=== PATIENT | male | born 1950 | race Caucasian/White ===

== ENCOUNTER 2017-09-22 12:18 | Inpatient (IN) | payer OTHER ==
[~2017-09-22] VITALS: Ht 188 cm; Wt 62.0 kg
[2017-09-22] VITALS (11 sets, daily range): BP systolic 86–103; BP diastolic 56–70
[2017-09-22 13:40] LABS: ALBUMIN 1.9 g/dL (3.2-4.8); CHLORIDE 107 mEq/L (99-109); SODIUM 136 mEq/L (136-147)
[2017-09-22 13:42] LABS: GLUCOSE 113 mg/dL (70-99); TOTAL PROTEIN 6.2 g/dL (6.4-8.3)
[2017-09-22 13:44] LABS: BASOPHIL (%) 0.2 % (0-1); EOSINOPHIL (%) 0.8 % (0-5); EOSINOPHIL COUNT 0.1 K/uL (0-0.3); HEMATOCRIT 15.2 % (38.0-50.0); HEMOGLOBIN 3.6 G/DL (12.5-16.6); IMMATURE GRANULOCYTE (%) 0.5 % (0.0-0.7); LYMPHOCYTE (%) 12.5 % (15-42); LYMPHOCYTE COUNT 0.8 K/uL (1.0-2.8); MCH 12.7 PG (29.0-34.0); MCHC 23.7 G/DL (30.0-36.0); MCV 53.5 FL (86-99); MONOCYTE (%) 7.7 % (3-12); MONOCYTE COUNT 0.5 K/uL (0-0.8); NEUTROPHIL (%) 78.3 % (45-76); NEUTROPHIL COUNT 4.8 K/uL (1.8-6.4); PLATELET COUNT 632 K/uL (156-360); RBC DIS.WIDTH-CV 19.8 % (11.8-14.6); RBC DIS.WIDTH-SD 36.9 % (39-53); RED BLOOD COUNT 2.84 M/uL (4.00-5.50); TOTAL BILIRUBIN 0.2 mg/dL (0.0-1.0); WHITE BLOOD COUNT 6.1 K/uL (4.1-10.2)
[2017-09-22 13:46] LABS: ALKALINE PHOSPHATASE 52 IU/L (3-129); CREATININE 0.5 mg/dL (0.6-1.3); GFR ESTIMATE (CALCULATED) > 59 mL/min/ (58.99-99999)
[2017-09-22 13:47] LABS: UREA NITROGEN (BUN) 13 mg/dL (9-23)
[2017-09-22 13:48] LABS: AST (GOT) 9 IU/L (2-34)
[2017-09-22 13:49] LABS: ALT (GPT) 6 IU/L (3-49); LIPASE 46 U/L (1.0-51.0)
[2017-09-22 16:17] LABS: INTER. NORMALIZED RATIO 1.3
[2017-09-22 16:20] LABS: PTT 28.6 SEC (25-37)
[2017-09-22 23:31] LABS: INTER. NORMALIZED RATIO 1.3
[2017-09-22 23:34] LABS: PTT 36.6 SEC (25-37)
[2017-09-23] VITALS (10 sets, daily range): BP systolic 83–104; BP diastolic 50–70
[2017-09-23 03:48] LABS: HEMATOCRIT 27.2 % (38.0-50.0); HEMOGLOBIN 8.1 G/DL (12.5-16.6)
[2017-09-23 03:49] LABS: MCV 66.2 FL (86-99)
[2017-09-23 04:05] LABS: CHLORIDE 113 mEq/L (99-109); SODIUM 138 mEq/L (136-147)
[2017-09-23 04:10] LABS: CREATININE 0.5 mg/dL (0.6-1.3); GFR ESTIMATE (CALCULATED) > 59 mL/min/ (58.99-99999)
[2017-09-23 04:11] LABS: UREA NITROGEN (BUN) 13 mg/dL (9-23)
[2017-09-23 04:22] LABS: GLUCOSE 47 mg/dL (70-99)
[2017-09-23 06:15] LABS: HEMATOCRIT 29.1 % (38.0-50.0); HEMOGLOBIN 8.8 G/DL (12.5-16.6); MCV 65.1 FL (86-99); WHITE BLOOD COUNT 6.1 K/uL (4.1-10.2)
[2017-09-23 06:16] LABS: MCH 19.7 PG (29.0-34.0); MCHC 30.2 G/DL (30.0-36.0); RED BLOOD COUNT 4.47 M/uL (4.00-5.50)
[2017-09-23 06:17] LABS: PLATELET COUNT 390 K/uL (156-360)
[2017-09-23 06:23] LABS: ALBUMIN 1.8 g/dL (3.2-4.8); CHLORIDE 113 mEq/L (99-109); SODIUM 137 mEq/L (136-147)
[2017-09-23 06:26] LABS: TOTAL PROTEIN 5.9 g/dL (6.4-8.3)
[2017-09-23 06:29] LABS: ALKALINE PHOSPHATASE 51 IU/L (3-129); CREATININE 0.5 mg/dL (0.6-1.3); GFR ESTIMATE (CALCULATED) > 59 mL/min/ (58.99-99999)
[2017-09-23 06:30] LABS: UREA NITROGEN (BUN) 13 mg/dL (9-23)
[2017-09-23 06:31] LABS: AST (GOT) 13 IU/L (2-34)
[2017-09-23 06:32] LABS: ALT (GPT) 8 IU/L (3-49)
[2017-09-23 06:37] LABS: GLUCOSE 77 mg/dL (70-99); TOTAL BILIRUBIN 0.6 mg/dL (0.0-1.0)
[2017-09-23 12:10] LABS: IMM.RETIC FRACTION 8.3 % (3-19); RETICULOCYTE COUNT 1.6 % (0.5-1.8)
[2017-09-23 13:47] LABS: FOLIC ACID (FOLATE) 8.7 NG/ML (5.0-22.0)
[2017-09-23 15:24] LABS: MAGNESIUM 1.6 mg/dl (1.3-2.7)
[2017-09-23 15:30] LABS: PHOSPHORUS 2.5 mg/dL (2.5-4.9)
[2017-09-23 20:24] LABS: APPEARANCE CLOUDY ((CLEAR)); BILIRUBIN NEGATIVE; BLOOD MODERATE; COLOR YELLOW ((YELLOW)); GLUCOSE (STRIP) NEGATIVE; KETONES NEGATIVE; LEUKOCYTES LARGE; NITRITE NEGATIVE; PROTEIN (STRIP) NEGATIVE; SPECIFIC GRAVITY 1.019 (1.000-1.030); UROBILINOGEN 0.2 MG/DL (0.2-1.0)
[2017-09-23 20:50] LABS: BACTERIA 4+ /HPF; EPITHELIAL CELLS NONE SEEN /HPF; MUCUS NONE SEEN /LPF; RED BLOOD CELLS 0-5 /HPF (0-5); WHITE BLOOD CELLS 30-40 /HPF (0-5)
[2017-09-24 05:45] VITALS: BP 92/56
[2017-09-24 06:32] LABS: CHLORIDE 114 MEQ/L (99-109); CREATININE 0.6 MG/DL (0.6-1.3); GFR ESTIMATE (CALCULATED) > 59 mL/min/ (58.99-99999); GLUCOSE 76 mg/dL (70-99); POTASSIUM 4.4 MEQ/L (3.7-5.4); SODIUM 137 MEQ/L (136-147); UREA NITROGEN (BUN) 16 mg/dL (9-23)
[2017-09-24 07:43] LABS: ANISOCYTOSIS 2+; BASOPHIL (%) 0.5 % (0-1); BURR CELLS 1+; EOSINOPHIL (%) 2.1 % (0-5); EOSINOPHIL COUNT 0.2 K/uL (0-0.3); HEMATOCRIT 36.4 % (38.0-50.0); HEMOGLOBIN 10.4 G/DL (12.5-16.6); HYPOCHROMASIA 2+; IMMATURE GRANULOCYTE (%) 0.3 % (0.0-0.7); LYMPHOCYTE (%) 15.6 % (15-42); LYMPHOCYTE COUNT 1.2 K/uL (1.0-2.8); MACROCYTES 1+; MCH 19.7 PG (29.0-34.0); MCHC 28.6 G/DL (30.0-36.0); MICROCYTOSIS 2+; MONOCYTE (%) 9.4 % (3-12); MONOCYTE COUNT 0.7 K/uL (0-0.8); NEUTROPHIL (%) 72.1 % (45-76); NEUTROPHIL COUNT 5.4 K/uL (1.8-6.4); PLAT.SUFFICIENCY INCREASED; PLATELET CLUMPS PRESENT - PLATELET COUNT APPEARS INCREASED; PLATELET COUNT UNABLE TO REPORT K/uL (156-360); POIKILOCYTOSIS 3+; RED BLOOD COUNT 5.27 M/uL (4.00-5.50); WHITE BLOOD COUNT 7.5 K/uL (4.1-10.2)
[2017-09-24 07:44] LABS: MCV 69.1 FL (86-99)
[2017-09-24 07:47] VITALS: BP 101/58
[2017-09-24 11:05] VITALS: BP 103/63
[2017-09-24 12:57] LABS: TYPE OF FLUID PLEURAL
[2017-09-24 13:32] LABS: BODY FLUID GLUCOSE 96 MG/DL; BODY FLUID LDH 102 IU/L
[2017-09-24 13:42] LABS: APPEARANCE SL. HAZY-COLORLESS; BODY FLUID EOSINOPHILS 0 % (0-25); BODY FLUID RBC'S 2000 /MM^3 (0-100); BODY FLUID WBC'S 840 /MM^3 (0-500); MONONUCLEAR WBC'S 92 %; POLYNUCLEAR WBC'S 8 % (0-25)
[2017-09-24 14:43] VITALS: BP 102/58
[2017-09-24 15:06] LABS: MAGNESIUM 1.8 mg/dl (1.3-2.7)
[2017-09-24 15:14] LABS: PHOSPHORUS 1.6 mg/dL (2.5-4.9)
[2017-09-24 20:30] VITALS: BP 98/66
[2017-09-24 21:36] LABS: INTER. NORMALIZED RATIO 1.3
[2017-09-24 22:08] LABS: PTT 48.1 SEC (25-37)
[2017-09-25 01:18] VITALS: BP 90/59
[2017-09-25 05:22] VITALS: BP 106/73
[2017-09-25 05:35] LABS: BASOPHIL (%) 0.9 % (0-1); BASOPHIL COUNT 0.1 K/uL (0-0.1); EOSINOPHIL (%) 2.7 % (0-5); EOSINOPHIL COUNT 0.2 K/uL (0-0.3); HEMATOCRIT 31.6 % (38.0-50.0); HEMOGLOBIN 9.1 G/DL (12.5-16.6); IMMATURE GRANULOCYTE (%) 0.2 % (0.0-0.7); LYMPHOCYTE (%) 21.5 % (15-42); LYMPHOCYTE COUNT 1.3 K/uL (1.0-2.8); MCH 20.1 PG (29.0-34.0); MCHC 28.8 G/DL (30.0-36.0); MCV 69.8 FL (86-99); MONOCYTE (%) 7.3 % (3-12); MONOCYTE COUNT 0.4 K/uL (0-0.8); NEUTROPHIL (%) 67.4 % (45-76); RED BLOOD COUNT 4.53 M/uL (4.00-5.50); WHITE BLOOD COUNT 5.9 K/uL (4.1-10.2)
[2017-09-25 05:36] LABS: PLATELET COUNT 442 K/uL (156-360)
[2017-09-25 06:03] LABS: CHLORIDE 115 MEQ/L (99-109); CREATININE 0.5 MG/DL (0.6-1.3); GFR ESTIMATE (CALCULATED) > 59 mL/min/ (58.99-99999); POTASSIUM 3.9 MEQ/L (3.7-5.4); SODIUM 140 MEQ/L (136-147); UREA NITROGEN (BUN) 11 mg/dL (9-23)
[2017-09-25 06:10] LABS: GLUCOSE 96 mg/dL (70-99)
[2017-09-25 09:00] VITALS: BP 112/69
[2017-09-25 12:00] VITALS: BP 103/74
[2017-09-25 12:42] LABS: INTER. NORMALIZED RATIO 1.2
[2017-09-25 12:44] LABS: PTT 31.1 SEC (25-37)
[2017-09-25 13:10] LABS: MAGNESIUM 1.6 mg/dl (1.3-2.7); PHOSPHORUS 1.1 mg/dL (2.5-4.9)
[2017-09-25 20:15] VITALS: BP 107/67
[2017-09-26 00:45] VITALS: BP 110/65
[2017-09-26 04:30] VITALS: BP 112/69
[2017-09-26 06:02] LABS: HEMATOCRIT 31.3 % (38.0-50.0); HEMOGLOBIN 9.2 G/DL (12.5-16.6); MCH 20.3 PG (29.0-34.0); MCHC 29.4 G/DL (30.0-36.0); MCV 69.1 FL (86-99); RED BLOOD COUNT 4.53 M/uL (4.00-5.50)
[2017-09-26 06:16] LABS: BASOPHIL (%) 0.7 % (0-1); BASOPHIL COUNT 0.1 K/uL (0-0.1); EOSINOPHIL (%) 4.2 % (0-5); EOSINOPHIL COUNT 0.3 K/uL (0-0.3); IMMATURE GRANULOCYTE (%) 0.3 % (0.0-0.7); LYMPHOCYTE (%) 16.7 % (15-42); LYMPHOCYTE COUNT 1.2 K/uL (1.0-2.8); MONOCYTE (%) 8.2 % (3-12); MONOCYTE COUNT 0.6 K/uL (0-0.8); NEUTROPHIL (%) 69.9 % (45-76); NEUTROPHIL COUNT 4.9 K/uL (1.8-6.4); PLATELET COUNT 417 K/uL (156-360)
[2017-09-26 06:23] LABS: CHLORIDE 110 MEQ/L (99-109); CREATININE 0.4 MG/DL (0.6-1.3); GFR ESTIMATE (CALCULATED) > 59 mL/min/ (58.99-99999); GLUCOSE 80 mg/dL (70-99); POTASSIUM 4.3 MEQ/L (3.7-5.4); SODIUM 134 MEQ/L (136-147); UREA NITROGEN (BUN) 8 mg/dL (9-23)
[2017-09-26 06:25] LABS: ANISOCYTOSIS 2+; BURR CELLS 1+; HYPOCHROMASIA 2+; MICROCYTOSIS 2+; OVALOCYTES 1+; POIKILOCYTOSIS 2+; TARGET CELLS 2+
[2017-09-26 07:15] VITALS: BP 98/64
[2017-09-26 11:35] LABS: ALBUMIN < 1.5 G/DL (3.2-4.8); ALKALINE PHOSPHATASE 45 IU/L (3-129); ALT (GPT) 6 IU/L (3-49); AST (GOT) 8 IU/L (2-34); TOTAL BILIRUBIN 0.2 MG/DL (0.0-1.0); TOTAL PROTEIN 5.3 G/DL (6.4-8.3)
[2017-09-26 11:40] VITALS: BP 104/74
[2017-09-26 16:07] LABS: MAGNESIUM 1.4 mg/dl (1.3-2.7)
[2017-09-26 16:08] LABS: PHOSPHORUS < 1.0 mg/dL (2.5-4.9)
[2017-09-26 16:13] VITALS: BP 106/69
[2017-09-26 21:00] VITALS: BP 109/65
[2017-09-27] VITALS: BP 106/69
[2017-09-27 02:42] VITALS: BP 120/80
[2017-09-27 05:57] LABS: BASOPHIL (%) 0.5 % (0-1); EOSINOPHIL (%) 3.5 % (0-5); EOSINOPHIL COUNT 0.2 K/uL (0-0.3); HEMATOCRIT 29.7 % (38.0-50.0); HEMOGLOBIN 8.7 G/DL (12.5-16.6); IMMATURE GRANULOCYTE (%) 0.5 % (0.0-0.7); LYMPHOCYTE (%) 17.6 % (15-42); LYMPHOCYTE COUNT 1.1 K/uL (1.0-2.8); MCH 20.4 PG (29.0-34.0); MCHC 29.3 G/DL (30.0-36.0); MCV 69.6 FL (86-99); MONOCYTE (%) 8.4 % (3-12); MONOCYTE COUNT 0.5 K/uL (0-0.8); NEUTROPHIL (%) 69.5 % (45-76); NEUTROPHIL COUNT 4.1 K/uL (1.8-6.4); PLATELET COUNT 364 K/uL (156-360); RED BLOOD COUNT 4.27 M/uL (4.00-5.50)
[2017-09-27 08:54] LABS: ALKALINE PHOSPHATASE 47 IU/L (3-129); ALT (GPT) 5 IU/L (3-49); AST (GOT) < 7 IU/L (2-34); CHLORIDE 108 MEQ/L (99-109); CREATININE 0.3 MG/DL (0.6-1.3); GFR ESTIMATE (CALCULATED) > 59 mL/min/ (58.99-99999); GLUCOSE 71 mg/dL (70-99); MAGNESIUM 1.5 mg/dl (1.3-2.7); POTASSIUM 4.2 MEQ/L (3.7-5.4); SODIUM 136 MEQ/L (136-147); TOTAL BILIRUBIN 0.2 MG/DL (0.0-1.0); TOTAL PROTEIN 4.9 G/DL (6.4-8.3); TRIGLYCERIDES 110 MG/DL (Normal: <150); UREA NITROGEN (BUN) 7 mg/dL (9-23)
[2017-09-27 08:55] LABS: PREALBUMIN 3.5 mg/dL (10-40)
[2017-09-27 09:05] VITALS: BP 103/70
[2017-09-27 09:08] LABS: ALBUMIN < 1.5 G/DL (3.2-4.8)
[2017-09-27 12:02] VITALS: BP 106/75
[2017-09-27 17:06] VITALS: BP 12/67
[2017-09-27 18:54] LABS: PHOSPHORUS 1.9 mg/dL (2.5-4.9)
[2017-09-27 18:55] LABS: MAGNESIUM 1.9 mg/dl (1.3-2.7)
[2017-09-27 19:45] VITALS: BP 105/69
[2017-09-28] VITALS (12 sets, daily range): BP systolic 87–124; BP diastolic 57–87
[2017-09-28 08:33] LABS: CHLORIDE 108 MEQ/L (99-109); CREATININE 0.3 MG/DL (0.6-1.3); GFR ESTIMATE (CALCULATED) > 59 mL/min/ (58.99-99999); GLUCOSE 85 mg/dL (70-99); MAGNESIUM 1.8 mg/dl (1.3-2.7); SODIUM 134 MEQ/L (136-147); UREA NITROGEN (BUN) 8 mg/dL (9-23)
[2017-09-28 08:36] LABS: PHOSPHORUS 2.6 mg/dL (2.5-4.9)
[2017-09-28 09:13] LABS: HEMATOCRIT 31.8 % (38.0-50.0); HEMOGLOBIN 9.3 G/DL (12.5-16.6); MCH 20.5 PG (29.0-34.0); MCHC 29.2 G/DL (30.0-36.0); PLATELET COUNT 362 K/uL (156-360); RED BLOOD COUNT 4.54 M/uL (4.00-5.50); WHITE BLOOD COUNT 6.2 K/uL (4.1-10.2)
[2017-09-28 09:53] LABS: ALBUMIN < 1.5 G/DL (3.2-4.8); ALKALINE PHOSPHATASE 53 IU/L (3-129); ALT (GPT) 6 IU/L (3-49); AST (GOT) 8 IU/L (2-34); TOTAL PROTEIN 5.2 G/DL (6.4-8.3)
[2017-09-28 09:54] LABS: TOTAL BILIRUBIN 0.3 MG/DL (0.0-1.0)
[2017-09-28 14:55] LABS: HEMATOCRIT 30.1 % (38.0-50.0); HEMOGLOBIN 9.1 G/DL (12.5-16.6); MCH 21.8 PG (29.0-34.0); MCHC 30.2 G/DL (30.0-36.0); MCV 72.2 FL (86-99); PLATELET COUNT 412 K/uL (156-360); RED BLOOD COUNT 4.17 M/uL (4.00-5.50); WHITE BLOOD COUNT 8.7 K/uL (4.1-10.2)
[2017-09-28 14:58] LABS: INTER. NORMALIZED RATIO 1.1
[2017-09-28 15:01] LABS: PTT 29.6 SEC (25-37)
[2017-09-28 15:16] LABS: MAGNESIUM 1.7 mg/dl (1.3-2.7); PHOSPHORUS 3.1 mg/dL (2.5-4.9)
[2017-09-28 15:17] LABS: TROP-I INTERPRETATION NEGATIVE; TROPONIN-I < 0.01 ng/mL (0.0-0.30)
[2017-09-28 15:47] LABS: ALKALINE PHOSPHATASE 51 IU/L (3-129); ALT (GPT) 8 IU/L (3-49); CARCINOEMBR.ANTIGEN 4.2 NG/ML; CHLORIDE 110 MEQ/L (99-109); CREATININE 0.3 MG/DL (0.6-1.3); GFR ESTIMATE (CALCULATED) > 59 mL/min/ (58.99-99999); POTASSIUM 4.4 MEQ/L (3.7-5.4); SODIUM 136 MEQ/L (136-147); THYROTROPIN (TSH) 11.2 MIU/L (0.4-5.5); TOTAL PROTEIN 5.4 G/DL (6.4-8.3); UREA NITROGEN (BUN) 10 mg/dL (9-23)
[2017-09-28 15:48] LABS: AST (GOT) 18 IU/L (2-34); GLUCOSE 218 mg/dL (70-99); TOTAL BILIRUBIN 0.4 MG/DL (0.0-1.0)
[2017-09-29] VITALS: BP 100/63
[2017-09-29 02:00] VITALS: BP 97/64
[2017-09-29 04:00] VITALS: BP 92/58
[2017-09-29 06:01] LABS: CHLORIDE 111 MEQ/L (99-109); CREATININE 0.3 MG/DL (0.6-1.3); GFR ESTIMATE (CALCULATED) > 59 mL/min/ (58.99-99999); MAGNESIUM 1.9 mg/dl (1.3-2.7); PHOSPHORUS 2.9 mg/dL (2.5-4.9); POTASSIUM 4.2 MEQ/L (3.7-5.4); SODIUM 139 MEQ/L (136-147); UREA NITROGEN (BUN) 12 mg/dL (9-23)
[2017-09-29 06:05] LABS: GLUCOSE 103 mg/dL (70-99)
[2017-09-29 08:25] LABS: BASOPHIL (%) 0.2 % (0-1); EOSINOPHIL (%) 0.3 % (0-5); HEMATOCRIT 27.2 % (38.0-50.0); IMMATURE GRANULOCYTE (%) 0.4 % (0.0-0.7); LYMPHOCYTE (%) 9.5 % (15-42); LYMPHOCYTE COUNT 0.9 K/uL (1.0-2.8); MCH 21.7 PG (29.0-34.0); MCHC 29.4 G/DL (30.0-36.0); MCV 73.7 FL (86-99); MONOCYTE (%) 4.1 % (3-12); MONOCYTE COUNT 0.4 K/uL (0-0.8); NEUTROPHIL (%) 85.5 % (45-76); RED BLOOD COUNT 3.69 M/uL (4.00-5.50); WHITE BLOOD COUNT 9.3 K/uL (4.1-10.2)
[2017-09-29 08:43] LABS: ANISOCYTOSIS 2+; HYPOCHROMASIA 2+; MICROCYTOSIS 2+; PLAT.SUFFICIENCY ADEQUATE; PLATELET COUNT 266 K/uL (156-360); POIKILOCYTOSIS 1+
[2017-09-29 11:52] VITALS: BP 94/70
[2017-09-29 15:35] LABS: MAGNESIUM 2.1 mg/dl (1.3-2.7); PHOSPHORUS 2.8 mg/dL (2.5-4.9)
[2017-09-29 16:00] VITALS: BP 94/70
[2017-09-29 22:00] VITALS: BP 96/55
[2017-09-30] VITALS (7 sets, daily range): BP systolic 86–99; BP diastolic 51–69
[2017-09-30 06:22] LABS: HEMATOCRIT 29.4 % (38.0-50.0); HEMOGLOBIN 8.6 G/DL (12.5-16.6); MCH 22.1 PG (29.0-34.0); MCHC 29.3 G/DL (30.0-36.0); MCV 75.4 FL (86-99); PLATELET COUNT 229 K/uL (156-360); WHITE BLOOD COUNT 9.1 K/uL (4.1-10.2)
[2017-09-30 06:45] LABS: BASOPHIL (%) 0.1 % (0-1); EOSINOPHIL (%) 0.8 % (0-5); EOSINOPHIL COUNT 0.1 K/uL (0-0.3); IMMATURE GRANULOCYTE (%) 0.3 % (0.0-0.7); LYMPHOCYTE (%) 9.5 % (15-42); LYMPHOCYTE COUNT 0.9 K/uL (1.0-2.8); MONOCYTE (%) 5.6 % (3-12); MONOCYTE COUNT 0.5 K/uL (0-0.8); NEUTROPHIL (%) 83.7 % (45-76); NEUTROPHIL COUNT 7.6 K/uL (1.8-6.4)
[2017-09-30 06:52] LABS: ANISOCYTOSIS 2+; HYPOCHROMASIA 2+; MICROCYTOSIS 2+; POIKILOCYTOSIS 1+; POLYCHROMASIA 1+
[2017-09-30 07:31] LABS: ALBUMIN 2.2 G/DL (3.2-4.8); ALKALINE PHOSPHATASE 45 IU/L (3-129); ALT (GPT) 5 IU/L (3-49); CHLORIDE 112 MEQ/L (99-109); CREATININE 0.3 MG/DL (0.6-1.3); DIRECT BILIRUBIN 0.1 mg/dL (0.0-0.3); GFR ESTIMATE (CALCULATED) > 59 mL/min/ (58.99-99999); GLUCOSE 75 mg/dL (70-99); PHOSPHORUS 2.3 mg/dL (2.5-4.9); POTASSIUM 4.3 MEQ/L (3.7-5.4); PREALBUMIN 5.1 mg/dL (10-40); SODIUM 140 MEQ/L (136-147); TOTAL PROTEIN 5.2 G/DL (6.4-8.3); TRIGLYCERIDES 51 MG/DL (Normal: <150); UREA NITROGEN (BUN) 13 mg/dL (9-23)
[2017-09-30 07:35] LABS: AST (GOT) 8 IU/L (2-34); TOTAL BILIRUBIN 0.3 MG/DL (0.0-1.0)
[2017-09-30 16:13] LABS: PHOSPHORUS 2.5 mg/dL (2.5-4.9)
[2017-10-01] VITALS (8 sets, daily range): BP systolic 81–105; BP diastolic 50–71
[2017-10-01 06:19] LABS: CHLORIDE 110 MEQ/L (99-109); CREATININE 0.3 MG/DL (0.6-1.3); GFR ESTIMATE (CALCULATED) > 59 mL/min/ (58.99-99999); GLUCOSE 88 mg/dL (70-99); PHOSPHORUS 2.9 mg/dL (2.5-4.9); POTASSIUM 4.1 MEQ/L (3.7-5.4); SODIUM 138 MEQ/L (136-147); UREA NITROGEN (BUN) 12 mg/dL (9-23)
[2017-10-01 10:37] LABS: 24 HR VOLUME 1600 MLS; URINE UREA NITROGEN 9040 MG/24 HR
[2017-10-02] VITALS: BP 109/70; BP 123/58
[2017-10-02 04:00] VITALS: BP 111/76
[2017-10-02 06:26] LABS: HEMATOCRIT 31.8 % (38.0-50.0); HEMOGLOBIN 9.4 G/DL (12.5-16.6); MCH 22.7 PG (29.0-34.0); MCHC 29.6 G/DL (30.0-36.0); MCV 76.6 FL (86-99); PLATELET COUNT 297 K/uL (156-360); RED BLOOD COUNT 4.15 M/uL (4.00-5.50)
[2017-10-02 07:02] LABS: ANISOCYTOSIS 2+; BASOPHIL (%) 0.5 % (0-1); EOSINOPHIL (%) 1.3 % (0-5); EOSINOPHIL COUNT 0.1 K/uL (0-0.3); HYPOCHROMASIA 2+; IMMATURE GRANULOCYTE (%) 0.4 % (0.0-0.7); LYMPHOCYTE COUNT 0.6 K/uL (1.0-2.8); MICROCYTOSIS 2+; MONOCYTE (%) 6.8 % (3-12); MONOCYTE COUNT 0.5 K/uL (0-0.8); NEUTROPHIL COUNT 6.6 K/uL (1.8-6.4); POIKILOCYTOSIS 1+; POLYCHROMASIA 1+
[2017-10-02 07:09] LABS: CHLORIDE 114 MEQ/L (99-109); CREATININE 0.3 MG/DL (0.6-1.3); GFR ESTIMATE (CALCULATED) > 59 mL/min/ (58.99-99999); POTASSIUM 4.2 MEQ/L (3.7-5.4); SODIUM 141 MEQ/L (136-147); UREA NITROGEN (BUN) 13 mg/dL (9-23)
[2017-10-02 07:16] LABS: GLUCOSE 113 mg/dL (70-99)
[2017-10-02 09:06] VITALS: BP 109/74
[2017-10-02 12:30] VITALS: BP 100/68
[2017-10-02 15:02] LABS: MAGNESIUM 2.1 mg/dl (1.3-2.7); PHOSPHORUS 2.7 mg/dL (2.5-4.9)
[2017-10-02 15:38] VITALS: BP 115/68
[2017-10-02 17:03] LABS: C DIFF TOXIN NEGATIVE (NEGATIVE)
[2017-10-02 21:10] VITALS: BP 114/73
[2017-10-03] VITALS: BP 100/74
[2017-10-03 04:24] VITALS: BP 107/68
[2017-10-03 07:06] LABS: HEMATOCRIT 30.8 % (38.0-50.0); HEMOGLOBIN 9.1 G/DL (12.5-16.6); MCH 22.6 PG (29.0-34.0); MCHC 29.5 G/DL (30.0-36.0); MCV 76.6 FL (86-99); PLATELET COUNT 305 K/uL (156-360); RED BLOOD COUNT 4.02 M/uL (4.00-5.50); WHITE BLOOD COUNT 6.5 K/uL (4.1-10.2)
[2017-10-03 07:31] LABS: CHLORIDE 114 MEQ/L (99-109); CREATININE 0.2 MG/DL (0.6-1.3); GFR ESTIMATE (CALCULATED) > 59 mL/min/ (58.99-99999); GLUCOSE 85 mg/dL (70-99); PHOSPHORUS 2.9 mg/dL (2.5-4.9); POTASSIUM 4.2 MEQ/L (3.7-5.4); SODIUM 142 MEQ/L (136-147); UREA NITROGEN (BUN) 13 mg/dL (9-23)
[2017-10-03 07:50] LABS: ANISOCYTOSIS 1+; BASOPHIL (%) 0.5 % (0-1); EOSINOPHIL (%) 0.9 % (0-5); EOSINOPHIL COUNT 0.1 K/uL (0-0.3); HYPOCHROMASIA 1+; IMMATURE GRANULOCYTE (%) 0.3 % (0.0-0.7); LYMPHOCYTE (%) 12.1 % (15-42); LYMPHOCYTE COUNT 0.8 K/uL (1.0-2.8); MICROCYTOSIS 1+; MONOCYTE (%) 6.4 % (3-12); MONOCYTE COUNT 0.4 K/uL (0-0.8); NEUTROPHIL (%) 79.8 % (45-76); NEUTROPHIL COUNT 5.2 K/uL (1.8-6.4)
[2017-10-03 07:55] VITALS: BP 106/52
[2017-10-03 11:56] VITALS: BP 105/68
[2017-10-03 15:39] LABS: PHOSPHORUS 3.3 mg/dL (2.5-4.9)
[2017-10-03 16:38] VITALS: BP 96/52
[2017-10-03 20:09] VITALS: BP 110/75
[2017-10-04] VITALS: BP 105/67
[2017-10-04 03:09] VITALS: BP 96/66
[2017-10-04 05:52] LABS: HEMATOCRIT 30.4 % (38.0-50.0); HEMOGLOBIN 9.1 G/DL (12.5-16.6); MCH 22.9 PG (29.0-34.0); MCHC 29.9 G/DL (30.0-36.0); MCV 76.6 FL (86-99); PLATELET COUNT 332 K/uL (156-360); RED BLOOD COUNT 3.97 M/uL (4.00-5.50)
[2017-10-04 06:08] LABS: CHLORIDE 113 MEQ/L (99-109); MAGNESIUM 1.8 mg/dl (1.3-2.7); POTASSIUM 4.2 MEQ/L (3.7-5.4); SODIUM 138 MEQ/L (136-147)
[2017-10-04 06:14] LABS: CREATININE 0.2 MG/DL (0.6-1.3); GFR ESTIMATE (CALCULATED) > 59 mL/min/ (58.99-99999); GLUCOSE 76 mg/dL (70-99); PHOSPHORUS 2.9 mg/dL (2.5-4.9); UREA NITROGEN (BUN) 13 mg/dL (9-23)
[2017-10-04 06:31] LABS: ACANTHOCYTES 1+; ANISOCYTOSIS 2+; BASOPHIL COUNT 0.1 K/uL (0-0.1); EOSINOPHIL (%) 1.9 % (0-5); EOSINOPHIL COUNT 0.1 K/uL (0-0.3); HYPOCHROMASIA 1+; IMMATURE GRANULOCYTE (%) 0.3 % (0.0-0.7); LYMPHOCYTE (%) 14.5 % (15-42); MICROCYTOSIS 2+; MONOCYTE (%) 7.5 % (3-12); MONOCYTE COUNT 0.5 K/uL (0-0.8); NEUTROPHIL (%) 74.8 % (45-76); NEUTROPHIL COUNT 5.3 K/uL (1.8-6.4); POIKILOCYTOSIS 1+; SCHISTOCYTES 1+
[2017-10-04 07:30] VITALS: BP 109/70
[2017-10-04 15:27] LABS: MAGNESIUM 1.7 mg/dl (1.3-2.7); PHOSPHORUS 3.2 mg/dL (2.5-4.9)
[2017-10-04 16:14] VITALS: BP 100/76
[2017-10-04 19:10] VITALS: BP 105/69
[2017-10-05] VITALS (8 sets, daily range): BP systolic 92–114; BP diastolic 59–76
[2017-10-05 05:17] LABS: BASOPHIL (%) 0.3 % (0-1); EOSINOPHIL (%) 1.4 % (0-5); EOSINOPHIL COUNT 0.1 K/uL (0-0.3); HEMATOCRIT 28.2 % (38.0-50.0); HEMOGLOBIN 8.7 G/DL (12.5-16.6); IMMATURE GRANULOCYTE (%) 0.5 % (0.0-0.7); LYMPHOCYTE (%) 15.8 % (15-42); MCHC 30.9 G/DL (30.0-36.0); MCV 74.6 FL (86-99); MONOCYTE (%) 7.9 % (3-12); MONOCYTE COUNT 0.5 K/uL (0-0.8); NEUTROPHIL (%) 74.1 % (45-76); NEUTROPHIL COUNT 4.8 K/uL (1.8-6.4); RED BLOOD COUNT 3.78 M/uL (4.00-5.50); WHITE BLOOD COUNT 6.5 K/uL (4.1-10.2)
[2017-10-05 05:26] LABS: CHLORIDE 107 mEq/L (99-109); POTASSIUM 4.3 mEq/L (3.7-5.4); SODIUM 135 mEq/L (136-147)
[2017-10-05 05:27] LABS: MAGNESIUM 1.6 mg/dL (1.3-2.7)
[2017-10-05 05:28] LABS: GLUCOSE 80 mg/dL (70-99)
[2017-10-05 05:31] LABS: PHOSPHORUS 3.3 mg/dL (2.5-4.9)
[2017-10-05 05:32] LABS: CREATININE 0.4 mg/dL (0.6-1.3); GFR ESTIMATE (CALCULATED) > 59 mL/min/ (58.99-99999)
[2017-10-05 05:33] LABS: UREA NITROGEN (BUN) 10 mg/dL (9-23)
[2017-10-05 06:28] LABS: ANISOCYTOSIS 2+; HYPOCHROMASIA 2+; MICROCYTOSIS 2+; OVALOCYTES 1+; PLAT.SUFFICIENCY INCREASED; PLATELET COUNT 402 K/uL (156-360); POIKILOCYTOSIS 1+; POLYCHROMASIA 1+
[2017-10-05 16:06] LABS: MAGNESIUM 1.9 mg/dl (1.3-2.7); PHOSPHORUS 3.4 mg/dL (2.5-4.9)
[2017-10-05 19:47] LABS: C DIFF TOXIN ND (NEGATIVE)
[2017-10-06 04:19] VITALS: BP 91/51
[2017-10-06 06:33] LABS: CHLORIDE 107 MEQ/L (99-109); CREATININE 0.3 MG/DL (0.6-1.3); GFR ESTIMATE (CALCULATED) > 59 mL/min/ (58.99-99999); GLUCOSE 93 mg/dL (70-99); MAGNESIUM 1.8 mg/dl (1.3-2.7); POTASSIUM 4.6 MEQ/L (3.7-5.4); SODIUM 135 MEQ/L (136-147); UREA NITROGEN (BUN) 11 mg/dL (9-23)
[2017-10-06 07:02] LABS: HEMATOCRIT 33.8 % (38.0-50.0); HEMOGLOBIN 10.3 G/DL (12.5-16.6); MCH 22.8 PG (29.0-34.0); MCHC 30.5 G/DL (30.0-36.0); MCV 74.9 FL (86-99); RED BLOOD COUNT 4.51 M/uL (4.00-5.50); WHITE BLOOD COUNT 6.8 K/uL (4.1-10.2)
[2017-10-06 07:48] LABS: HEMATOLOGY COMMENT 1 SMEAR COMPATIBLE; PLAT.SUFFICIENCY INCREASED; PLATELET COUNT 404 K/uL (156-360)
[2017-10-06 08:01] VITALS: BP 101/64
[2017-10-06 15:39] LABS: MAGNESIUM 1.8 mg/dl (1.3-2.7)
[2017-10-06 16:12] VITALS: BP 92/57
[2017-10-06 19:39] VITALS: BP 113/58
[2017-10-07] VITALS (8 sets, daily range): BP systolic 83–118; BP diastolic 46–67
[2017-10-07 06:14] LABS: BASOPHIL (%) 0.5 % (0-1); EOSINOPHIL (%) 1.1 % (0-5); HEMATOCRIT 26.6 % (38.0-50.0); IMMATURE GRANULOCYTE (%) 0.7 % (0.0-0.7); LYMPHOCYTE (%) 13.8 % (15-42); LYMPHOCYTE COUNT 0.8 K/uL (1.0-2.8); MCH 22.5 PG (29.0-34.0); MCHC 29.7 G/DL (30.0-36.0); MCV 75.8 FL (86-99); MONOCYTE (%) 7.9 % (3-12); MONOCYTE COUNT 0.5 K/uL (0-0.8); NEUTROPHIL COUNT 4.6 K/uL (1.8-6.4); PLATELET COUNT 314 K/uL (156-360); WHITE BLOOD COUNT 6.1 K/uL (4.1-10.2)
[2017-10-07 06:15] LABS: EOSINOPHIL COUNT 0.1 K/uL (0-0.3)
[2017-10-07 06:16] LABS: HEMOGLOBIN 7.9 G/DL (12.5-16.6); RED BLOOD COUNT 3.51 M/uL (4.00-5.50)
[2017-10-07 07:07] LABS: ALKALINE PHOSPHATASE 44 IU/L (3-129); ALT (GPT) 5 IU/L (3-49); ALT (GPT) 6 IU/L (3-49); AST (GOT) 11 IU/L (2-34); AST (GOT) 9 IU/L (2-34); CHLORIDE 101 MEQ/L (99-109); CHLORIDE 103 MEQ/L (99-109); CREATININE 0.3 MG/DL (0.6-1.3); DIRECT BILIRUBIN 0.1 mg/dL (0.0-0.3); GFR ESTIMATE (CALCULATED) > 59 mL/min/ (58.99-99999); GLUCOSE 77 mg/dL (70-99); GLUCOSE 80 mg/dL (70-99); MAGNESIUM 1.7 mg/dl (1.3-2.7); POTASSIUM 4.1 MEQ/L (3.7-5.4); PREALBUMIN 6.8 mg/dL (10-40); SODIUM 132 MEQ/L (136-147); SODIUM 134 MEQ/L (136-147); TOTAL BILIRUBIN 0.2 MG/DL (0.0-1.0); TOTAL PROTEIN 5.1 G/DL (6.4-8.3); TOTAL PROTEIN 5.3 G/DL (6.4-8.3); TRIGLYCERIDES 98 MG/DL (Normal: <150); UREA NITROGEN (BUN) 9 mg/dL (9-23)
[2017-10-07 15:27] LABS: MAGNESIUM 1.8 mg/dl (1.3-2.7)
[2017-10-07 15:32] LABS: PHOSPHORUS 3.5 mg/dL (2.5-4.9)
[2017-10-08 04:16] VITALS: BP 87/52
[2017-10-08 06:13] LABS: HEMATOCRIT 28.4 % (38.0-50.0); HEMOGLOBIN 8.4 G/DL (12.5-16.6); MCH 22.4 PG (29.0-34.0); MCHC 29.6 G/DL (30.0-36.0); MCV 75.7 FL (86-99); PLATELET COUNT 340 K/uL (156-360); RED BLOOD COUNT 3.75 M/uL (4.00-5.50); WHITE BLOOD COUNT 6.9 K/uL (4.1-10.2)
[2017-10-08 06:43] LABS: CHLORIDE 100 MEQ/L (99-109); CREATININE 0.3 MG/DL (0.6-1.3); GFR ESTIMATE (CALCULATED) > 59 mL/min/ (58.99-99999); GLUCOSE 76 mg/dL (70-99); MAGNESIUM 1.8 mg/dl (1.3-2.7); PHOSPHORUS 3.8 mg/dL (2.5-4.9); POTASSIUM 4.3 MEQ/L (3.7-5.4); SODIUM 134 MEQ/L (136-147); UREA NITROGEN (BUN) 8 mg/dL (9-23)
[2017-10-08 08:30] VITALS: BP 94/54
[2017-10-08 11:35] VITALS: BP 105/56
[2017-10-08 14:20] LABS: 24 HR VOLUME 3600 MLS; URINE UREA NITROGEN 6984 MG/24 HR
[2017-10-08 15:29] LABS: MAGNESIUM 1.8 mg/dl (1.3-2.7); PHOSPHORUS 3.2 mg/dL (2.5-4.9)
[2017-10-08 16:57] VITALS: BP 104/54
[2017-10-08 19:46] VITALS: BP 124/76
[2017-10-08 23:23] VITALS: BP 90/51
[2017-10-09 03:19] VITALS: BP 102/60
[2017-10-09 05:54] LABS: CHLORIDE 103 MEQ/L (99-109); CREATININE 0.2 MG/DL (0.6-1.3); GFR ESTIMATE (CALCULATED) > 59 mL/min/ (58.99-99999); GLUCOSE 83 mg/dL (70-99); MAGNESIUM 1.7 mg/dl (1.3-2.7); PHOSPHORUS 2.9 mg/dL (2.5-4.9); POTASSIUM 4.2 MEQ/L (3.7-5.4); SODIUM 134 MEQ/L (136-147); UREA NITROGEN (BUN) 9 mg/dL (9-23)
[2017-10-09 07:56] VITALS: BP 97/53
[2017-10-09 11:31] VITALS: BP 88/50
[2017-10-09 15:33] LABS: MAGNESIUM 1.7 mg/dl (1.3-2.7)
[2017-10-09 15:50] VITALS: BP 86/54
[2017-10-09 19:51] VITALS: BP 87/55
[2017-10-09 23:39] VITALS: BP 95/59
[2017-10-10 03:29] VITALS: BP 85/50
[2017-10-10 06:11] LABS: HEMATOCRIT 24.9 % (38.0-50.0); HEMOGLOBIN 7.6 G/DL (12.5-16.6); MCH 23.1 PG (29.0-34.0); MCHC 30.5 G/DL (30.0-36.0); MCV 75.7 FL (86-99); PLATELET COUNT 359 K/uL (156-360); RED BLOOD COUNT 3.29 M/uL (4.00-5.50); WHITE BLOOD COUNT 5.2 K/uL (4.1-10.2)
[2017-10-10 06:22] LABS: CHLORIDE 106 MEQ/L (99-109); CREATININE 0.3 MG/DL (0.6-1.3); GFR ESTIMATE (CALCULATED) > 59 mL/min/ (58.99-99999); GLUCOSE 103 mg/dL (70-99); MAGNESIUM 1.8 mg/dl (1.3-2.7); PHOSPHORUS 3.7 mg/dL (2.5-4.9); POTASSIUM 4.1 MEQ/L (3.7-5.4); SODIUM 138 MEQ/L (136-147); UREA NITROGEN (BUN) 9 mg/dL (9-23)
[2017-10-10 10:55] VITALS: BP 89/58
[2017-10-10 11:25] VITALS: BP 89/58
[2017-10-10 15:05] VITALS: BP 92/60
[2017-10-10 15:32] LABS: MAGNESIUM 1.8 mg/dl (1.3-2.7); PHOSPHORUS 2.7 mg/dL (2.5-4.9)
[2017-10-10 20:32] VITALS: BP 90/57
[2017-10-10 23:45] VITALS: BP 92/60
[2017-10-11 03:28] VITALS: BP 98/63
[2017-10-11 06:44] LABS: HEMOGLOBIN 7.9 G/DL (12.5-16.6); MCHC 29.3 G/DL (30.0-36.0); MCV 78.5 FL (86-99); PLATELET COUNT 342 K/uL (156-360); RED BLOOD COUNT 3.44 M/uL (4.00-5.50); WHITE BLOOD COUNT 6.5 K/uL (4.1-10.2)
[2017-10-11 07:09] LABS: CHLORIDE 109 MEQ/L (99-109); CREATININE 0.3 MG/DL (0.6-1.3); GFR ESTIMATE (CALCULATED) > 59 mL/min/ (58.99-99999); GLUCOSE 90 mg/dL (70-99); MAGNESIUM 1.8 mg/dl (1.3-2.7); PHOSPHORUS 2.9 mg/dL (2.5-4.9); POTASSIUM 4.1 MEQ/L (3.7-5.4); SODIUM 137 MEQ/L (136-147); UREA NITROGEN (BUN) 11 mg/dL (9-23)
[2017-10-11 07:17] VITALS: BP 100/56
[2017-10-11 11:15] VITALS: BP 96/58
[2017-10-11 15:22] LABS: MAGNESIUM 1.7 mg/dl (1.3-2.7); PHOSPHORUS 2.7 mg/dL (2.5-4.9)
[2017-10-11 15:34] VITALS: BP 96/57
[2017-10-11 19:41] VITALS: BP 100/56
[2017-10-11 23:46] VITALS: BP 107/58
[2017-10-12 04:17] VITALS: BP 88/53
[2017-10-12 06:43] LABS: HEMOGLOBIN 7.8 G/DL (12.5-16.6); MCH 22.5 PG (29.0-34.0); MCHC 28.9 G/DL (30.0-36.0); MCV 77.8 FL (86-99); PLATELET COUNT 403 K/uL (156-360); RED BLOOD COUNT 3.47 M/uL (4.00-5.50); WHITE BLOOD COUNT 5.9 K/uL (4.1-10.2)
[2017-10-12 07:09] LABS: CHLORIDE 111 MEQ/L (99-109); CREATININE 0.3 MG/DL (0.6-1.3); GFR ESTIMATE (CALCULATED) > 59 mL/min/ (58.99-99999); GLUCOSE 101 mg/dL (70-99); MAGNESIUM 1.8 mg/dl (1.3-2.7); PHOSPHORUS 3.1 mg/dL (2.5-4.9); POTASSIUM 4.2 MEQ/L (3.7-5.4); SODIUM 139 MEQ/L (136-147); UREA NITROGEN (BUN) 10 mg/dL (9-23)
[2017-10-12 08:32] VITALS: BP 95/56
[2017-10-12 12:13] VITALS: BP 97/54
[2017-10-12 15:39] LABS: MAGNESIUM 1.8 mg/dl (1.3-2.7)
[2017-10-12 16:33] VITALS: BP 100/57
[2017-10-12 19:31] VITALS: BP 89/51
[2017-10-12 23:33] VITALS: BP 92/58
[2017-10-13 03:59] VITALS: BP 99/56
[2017-10-13 06:47] LABS: CHLORIDE 103 MEQ/L (99-109); CREATININE 0.2 MG/DL (0.6-1.3); GFR ESTIMATE (CALCULATED) > 59 mL/min/ (58.99-99999); GLUCOSE 99 mg/dL (70-99); MAGNESIUM 1.6 mg/dl (1.3-2.7); PHOSPHORUS 3.5 mg/dL (2.5-4.9); POTASSIUM 4.4 MEQ/L (3.7-5.4); UREA NITROGEN (BUN) 11 mg/dL (9-23)
[2017-10-13 06:49] LABS: SODIUM 131 MEQ/L (136-147)
[2017-10-13 08:15] VITALS: BP 98/56
[2017-10-13 12:31] VITALS: BP 99/58
[2017-10-13 15:49] VITALS: BP 97/56
[2017-10-13 16:31] LABS: PHOSPHORUS 3.3 mg/dL (2.5-4.9)
[2017-10-13 16:32] LABS: MAGNESIUM 1.9 mg/dl (1.3-2.7)
[2017-10-13 17:46] LABS: APPEARANCE CLEAR ((CLEAR)); BILIRUBIN NEGATIVE; BLOOD NEGATIVE; COLOR YELLOW ((YELLOW)); GLUCOSE (STRIP) NEGATIVE; KETONES NEGATIVE; LEUKOCYTES NEGATIVE; NITRITE NEGATIVE; PROTEIN (STRIP) NEGATIVE; SPECIFIC GRAVITY 1.018 (1.000-1.030); UCUL ADDED? NO; UROBILINOGEN 0.2 MG/DL (0.2-1.0)
[2017-10-13 19:58] VITALS: BP 87/53
[2017-10-13 23:48] VITALS: BP 96/58
[2017-10-14 04:19] VITALS: BP 86/52
[2017-10-14 05:38] LABS: HEMATOCRIT 26.1 % (38.0-50.0); HEMOGLOBIN 7.8 G/DL (12.5-16.6); MCH 22.8 PG (29.0-34.0); MCHC 29.9 G/DL (30.0-36.0); MCV 76.3 FL (86-99); PLATELET COUNT 409 K/uL (156-360); RED BLOOD COUNT 3.42 M/uL (4.00-5.50); WHITE BLOOD COUNT 6.6 K/uL (4.1-10.2)
[2017-10-14 06:06] LABS: ALKALINE PHOSPHATASE 61 IU/L (3-129); ALT (GPT) 6 IU/L (3-49); AST (GOT) 9 IU/L (2-34); CHLORIDE 104 MEQ/L (99-109); CREATININE 0.2 MG/DL (0.6-1.3); DIRECT BILIRUBIN 0.1 mg/dL (0.0-0.3); GFR ESTIMATE (CALCULATED) > 59 mL/min/ (58.99-99999); GLUCOSE 100 mg/dL (70-99); MAGNESIUM 1.7 mg/dl (1.3-2.7); PHOSPHORUS 3.8 mg/dL (2.5-4.9); POTASSIUM 4.4 MEQ/L (3.7-5.4); SODIUM 132 MEQ/L (136-147); TOTAL BILIRUBIN 0.2 MG/DL (0.0-1.0); TOTAL PROTEIN 5.4 G/DL (6.4-8.3); TRIGLYCERIDES 79 MG/DL (Normal: <150); UREA NITROGEN (BUN) 12 mg/dL (9-23)
[2017-10-14 06:40] LABS: BASOPHIL (%) 0.6 % (0-1); EOSINOPHIL COUNT 0.2 K/uL (0-0.3); IMMATURE GRANULOCYTE (%) 0.5 % (0.0-0.7); LYMPHOCYTE (%) 15.7 % (15-42); MONOCYTE COUNT 0.7 K/uL (0-0.8); NEUTROPHIL (%) 70.2 % (45-76); NEUTROPHIL COUNT 4.6 K/uL (1.8-6.4); PLAT.SUFFICIENCY INCREASED
[2017-10-14 07:34] LABS: PREALBUMIN 7.3 mg/dL (10-40)
[2017-10-14 08:42] VITALS: BP 108/65
[2017-10-14 12:16] VITALS: BP 100/60
[2017-10-14 15:43] LABS: MAGNESIUM 1.7 mg/dl (1.3-2.7); PHOSPHORUS 3.6 mg/dL (2.5-4.9)
[2017-10-14 16:21] VITALS: BP 101/61
[2017-10-14 19:55] VITALS: BP 94/58
[2017-10-15 06:23] LABS: CHLORIDE 100 MEQ/L (99-109); CREATININE 0.3 MG/DL (0.6-1.3); GFR ESTIMATE (CALCULATED) > 59 mL/min/ (58.99-99999); GLUCOSE 87 mg/dL (70-99); MAGNESIUM 1.5 mg/dl (1.3-2.7); PHOSPHORUS 3.8 mg/dL (2.5-4.9); POTASSIUM 4.5 MEQ/L (3.7-5.4); SODIUM 128 MEQ/L (136-147); UREA NITROGEN (BUN) 16 mg/dL (9-23)
[2017-10-15 08:39] VITALS: BP 104/55
[2017-10-15 10:08] LABS: 24 HR VOLUME 1700 MLS; URINE UREA NITROGEN 10676 MG/24 HR
[2017-10-15 10:12] LABS: HEMATOCRIT 26.1 % (38.0-50.0); HEMOGLOBIN 7.9 G/DL (12.5-16.6); MCH 23.2 PG (29.0-34.0); MCHC 30.3 G/DL (30.0-36.0); MCV 76.5 FL (86-99); PLATELET COUNT 421 K/uL (156-360); RED BLOOD COUNT 3.41 M/uL (4.00-5.50); WHITE BLOOD COUNT 6.8 K/uL (4.1-10.2)
[2017-10-15 12:59] VITALS: BP 93/53
[2017-10-15 15:04] LABS: PHOSPHORUS 3.8 mg/dL (2.5-4.9)
[2017-10-15 15:06] LABS: MAGNESIUM 2.5 mg/dl (1.3-2.7)
[2017-10-15 16:28] VITALS: BP 91/53
[2017-10-15 20:13] VITALS: BP 92/55
[2017-10-16] VITALS (11 sets, daily range): BP systolic 86–104; BP diastolic 48–65
[2017-10-16 06:37] LABS: HEMATOCRIT 24.6 % (38.0-50.0); HEMOGLOBIN 7.6 G/DL (12.5-16.6); MCH 23.8 PG (29.0-34.0); MCHC 30.9 G/DL (30.0-36.0); MCV 76.9 FL (86-99); PLATELET COUNT 403 K/uL (156-360); WHITE BLOOD COUNT 5.4 K/uL (4.1-10.2)
[2017-10-16 07:00] LABS: ANISOCYTOSIS 2+; BASOPHIL (%) 0.9 % (0-1); BASOPHIL COUNT 0.1 K/uL (0-0.1); EOSINOPHIL (%) 2.6 % (0-5); EOSINOPHIL COUNT 0.1 K/uL (0-0.3); HYPOCHROMASIA 1+; IMMATURE GRANULOCYTE (%) 0.6 % (0.0-0.7); LYMPHOCYTE (%) 15.4 % (15-42); LYMPHOCYTE COUNT 0.8 K/uL (1.0-2.8); MICROCYTOSIS 2+; MONOCYTE COUNT 0.7 K/uL (0-0.8); NEUTROPHIL (%) 67.5 % (45-76); NEUTROPHIL COUNT 3.6 K/uL (1.8-6.4); OVALOCYTES 1+; POIKILOCYTOSIS 1+; POLYCHROMASIA 3+
[2017-10-16 07:12] LABS: ALKALINE PHOSPHATASE 77 IU/L (3-129); ALT (GPT) 8 IU/L (3-49); AST (GOT) 12 IU/L (2-34); CHLORIDE 99 MEQ/L (99-109); CREATININE 0.3 MG/DL (0.6-1.3); GFR ESTIMATE (CALCULATED) > 59 mL/min/ (58.99-99999); GLUCOSE 96 mg/dL (70-99); POTASSIUM 4.6 MEQ/L (3.7-5.4); SODIUM 132 MEQ/L (136-147); TOTAL BILIRUBIN 0.2 MG/DL (0.0-1.0); TOTAL PROTEIN 5.7 G/DL (6.4-8.3); UREA NITROGEN (BUN) 13 mg/dL (9-23)
[2017-10-16 07:16] LABS: MAGNESIUM 1.9 mg/dl (1.3-2.7)
[2017-10-16 15:37] LABS: MAGNESIUM 1.7 mg/dl (1.3-2.7); PHOSPHORUS 3.8 mg/dL (2.5-4.9)
[2017-10-16 17:58] LABS: HEMATOCRIT 28.3 % (38.0-50.0); HEMOGLOBIN 8.7 G/DL (12.5-16.6); MCH 23.9 PG (29.0-34.0); MCHC 30.7 G/DL (30.0-36.0); MCV 77.7 FL (86-99); PLATELET COUNT 413 K/uL (156-360); RBC DIS.WIDTH-CV 24.2 % (11.8-14.6); RBC DIS.WIDTH-SD 68.5 % (39-53); RED BLOOD COUNT 3.64 M/uL (4.00-5.50); WHITE BLOOD COUNT 6.7 K/uL (4.1-10.2)
[2017-10-17 04:00] VITALS: BP 98/61
[2017-10-17 05:55] LABS: HEMATOCRIT 28.9 % (38.0-50.0); HEMOGLOBIN 8.9 G/DL (12.5-16.6); MCH 23.7 PG (29.0-34.0); MCHC 30.8 G/DL (30.0-36.0); MCV 77.1 FL (86-99); PLATELET COUNT 486 K/uL (156-360); RBC DIS.WIDTH-CV 24.2 % (11.8-14.6); RBC DIS.WIDTH-SD 67.7 % (39-53); RED BLOOD COUNT 3.75 M/uL (4.00-5.50); WHITE BLOOD COUNT 6.7 K/uL (4.1-10.2)
[2017-10-17 06:18] LABS: BASOPHIL (%) 0.9 % (0-1); BASOPHIL COUNT 0.1 K/uL (0-0.1); EOSINOPHIL (%) 2.1 % (0-5); EOSINOPHIL COUNT 0.1 K/uL (0-0.3); IMMATURE GRANULOCYTE (%) 0.4 % (0.0-0.7); LYMPHOCYTE (%) 16.3 % (15-42); LYMPHOCYTE COUNT 1.1 K/uL (1.0-2.8); MONOCYTE (%) 11.5 % (3-12); MONOCYTE COUNT 0.8 K/uL (0-0.8); NEUTROPHIL (%) 68.8 % (45-76); NEUTROPHIL COUNT 4.6 K/uL (1.8-6.4)
[2017-10-17 06:31] LABS: ALKALINE PHOSPHATASE 85 IU/L (3-129); ALT (GPT) 7 IU/L (3-49); AST (GOT) 11 IU/L (2-34); CHLORIDE 101 MEQ/L (99-109); CREATININE 0.3 MG/DL (0.6-1.3); GFR ESTIMATE (CALCULATED) > 59 mL/min/ (58.99-99999); GLUCOSE 103 mg/dL (70-99); POTASSIUM 4.6 MEQ/L (3.7-5.4); SODIUM 130 MEQ/L (136-147); TOTAL PROTEIN 5.8 G/DL (6.4-8.3); UREA NITROGEN (BUN) 14 mg/dL (9-23)
[2017-10-17 06:33] LABS: TOTAL BILIRUBIN 0.3 MG/DL (0.0-1.0)
[2017-10-17 07:09] LABS: MAGNESIUM 1.6 mg/dl (1.3-2.7); PHOSPHORUS 3.8 mg/dL (2.5-4.9)
[2017-10-17 08:00] VITALS: BP 91/57
[2017-10-17 11:54] VITALS: BP 88/50
[2017-10-17 16:00] VITALS: BP 103/63
[2017-10-17 16:43] LABS: MAGNESIUM 1.7 mg/dl (1.3-2.7); PHOSPHORUS 3.3 mg/dL (2.5-4.9)
[2017-10-17 20:30] VITALS: BP 104/65
[2017-10-18 01:11] VITALS: BP 103/68
[2017-10-18 05:05] VITALS: BP 106/58
[2017-10-18 06:46] LABS: BASOPHIL (%) 0.6 % (0-1); EOSINOPHIL (%) 2.6 % (0-5); EOSINOPHIL COUNT 0.2 K/uL (0-0.3); HEMATOCRIT 30.2 % (38.0-50.0); HEMOGLOBIN 9.2 G/DL (12.5-16.6); IMMATURE GRANULOCYTE (%) 0.3 % (0.0-0.7); LYMPHOCYTE (%) 13.5 % (15-42); LYMPHOCYTE COUNT 0.9 K/uL (1.0-2.8); MCH 23.8 PG (29.0-34.0); MCHC 30.5 G/DL (30.0-36.0); MCV 78.2 FL (86-99); MONOCYTE (%) 10.4 % (3-12); MONOCYTE COUNT 0.7 K/uL (0-0.8); NEUTROPHIL (%) 72.6 % (45-76); NEUTROPHIL COUNT 4.7 K/uL (1.8-6.4); PLATELET COUNT 473 K/uL (156-360); RBC DIS.WIDTH-CV 24.6 % (11.8-14.6); RBC DIS.WIDTH-SD 69.6 % (39-53); RED BLOOD COUNT 3.86 M/uL (4.00-5.50); WHITE BLOOD COUNT 6.5 K/uL (4.1-10.2)
[2017-10-18 06:50] LABS: CHLORIDE 99 MEQ/L (99-109); CREATININE 0.3 MG/DL (0.6-1.3); GFR ESTIMATE (CALCULATED) > 59 mL/min/ (58.99-99999); GLUCOSE 103 mg/dL (70-99); MAGNESIUM 1.7 mg/dl (1.3-2.7); PHOSPHORUS 3.7 mg/dL (2.5-4.9); POTASSIUM 4.4 MEQ/L (3.7-5.4); SODIUM 134 MEQ/L (136-147); UREA NITROGEN (BUN) 12 mg/dL (9-23)
[2017-10-18 06:52] LABS: ALKALINE PHOSPHATASE 82 IU/L (3-129); ALT (GPT) 7 IU/L (3-49); AST (GOT) 11 IU/L (2-34); CHLORIDE 100 MEQ/L (99-109); CREATININE 0.3 MG/DL (0.6-1.3); GFR ESTIMATE (CALCULATED) > 59 mL/min/ (58.99-99999); GLUCOSE 102 mg/dL (70-99); POTASSIUM 4.4 MEQ/L (3.7-5.4); SODIUM 133 MEQ/L (136-147); TOTAL BILIRUBIN 0.3 MG/DL (0.0-1.0); TOTAL PROTEIN 5.6 G/DL (6.4-8.3); UREA NITROGEN (BUN) 12 mg/dL (9-23)
[2017-10-18 08:00] VITALS: BP 102/62
[2017-10-18 12:06] VITALS: BP 92/56
[2017-10-18 15:41] LABS: PHOSPHORUS 3.4 mg/dL (2.5-4.9)
[2017-10-18 17:22] VITALS: BP 90/55
[2017-10-18 20:08] VITALS: BP 92/52
[2017-10-19] VITALS (7 sets, daily range): BP systolic 91–107; BP diastolic 52–67
[2017-10-19 05:50] LABS: BASOPHIL (%) 0.7 % (0-1); EOSINOPHIL (%) 2.9 % (0-5); EOSINOPHIL COUNT 0.2 K/uL (0-0.3); HEMATOCRIT 30.1 % (38.0-50.0); HEMOGLOBIN 9.4 G/DL (12.5-16.6); IMMATURE GRANULOCYTE (%) 0.3 % (0.0-0.7); LYMPHOCYTE (%) 13.8 % (15-42); LYMPHOCYTE COUNT 0.8 K/uL (1.0-2.8); MCH 24.4 PG (29.0-34.0); MCHC 31.2 G/DL (30.0-36.0); MONOCYTE (%) 10.9 % (3-12); MONOCYTE COUNT 0.6 K/uL (0-0.8); NEUTROPHIL (%) 71.4 % (45-76); NEUTROPHIL COUNT 4.2 K/uL (1.8-6.4); PLATELET COUNT 485 K/uL (156-360); RBC DIS.WIDTH-CV 24.6 % (11.8-14.6); RBC DIS.WIDTH-SD 70.6 % (39-53); RED BLOOD COUNT 3.86 M/uL (4.00-5.50); WHITE BLOOD COUNT 5.9 K/uL (4.1-10.2)
[2017-10-19 06:11] LABS: CHLORIDE 100 MEQ/L (99-109); CREATININE 0.3 MG/DL (0.6-1.3); GFR ESTIMATE (CALCULATED) > 59 mL/min/ (58.99-99999); GLUCOSE 111 mg/dL (70-99); MAGNESIUM 1.7 mg/dl (1.3-2.7); POTASSIUM 3.7 MEQ/L (3.7-5.4); SODIUM 130 MEQ/L (136-147); UREA NITROGEN (BUN) 14 mg/dL (9-23)
[2017-10-19 06:32] LABS: ALBUMIN 2.2 G/DL (3.2-4.8); ALKALINE PHOSPHATASE 77 IU/L (3-129); ALT (GPT) 7 IU/L (3-49); AST (GOT) 10 IU/L (2-34); CHLORIDE 102 MEQ/L (99-109); CREATININE 0.3 MG/DL (0.6-1.3); GFR ESTIMATE (CALCULATED) > 59 mL/min/ (58.99-99999); GLUCOSE 110 mg/dL (70-99); POTASSIUM 3.8 MEQ/L (3.7-5.4); SODIUM 132 MEQ/L (136-147); TOTAL PROTEIN 6.2 G/DL (6.4-8.3); UREA NITROGEN (BUN) 14 mg/dL (9-23)
[2017-10-19 06:33] LABS: TOTAL BILIRUBIN 0.2 MG/DL (0.0-1.0)
[2017-10-20 03:23] VITALS: BP 105/65
[2017-10-20 05:45] LABS: BASOPHIL (%) 0.7 % (0-1); EOSINOPHIL (%) 2.9 % (0-5); EOSINOPHIL COUNT 0.2 K/uL (0-0.3); HEMATOCRIT 28.7 % (38.0-50.0); HEMOGLOBIN 8.8 G/DL (12.5-16.6); IMMATURE GRANULOCYTE (%) 0.4 % (0.0-0.7); LYMPHOCYTE (%) 15.1 % (15-42); LYMPHOCYTE COUNT 0.8 K/uL (1.0-2.8); MCH 24.1 PG (29.0-34.0); MCHC 30.7 G/DL (30.0-36.0); MCV 78.6 FL (86-99); MONOCYTE COUNT 0.7 K/uL (0-0.8); NEUTROPHIL (%) 68.9 % (45-76); NEUTROPHIL COUNT 3.9 K/uL (1.8-6.4); PLATELET COUNT 465 K/uL (156-360); RBC DIS.WIDTH-CV 24.9 % (11.8-14.6); RBC DIS.WIDTH-SD 70.9 % (39-53); RED BLOOD COUNT 3.65 M/uL (4.00-5.50); WHITE BLOOD COUNT 5.6 K/uL (4.1-10.2)
[2017-10-20 06:08] LABS: ALBUMIN 2.2 G/DL (3.2-4.8); ALKALINE PHOSPHATASE 69 IU/L (3-129); ALT (GPT) 7 IU/L (3-49); AST (GOT) 11 IU/L (2-34); CHLORIDE 102 MEQ/L (99-109); CREATININE 0.3 MG/DL (0.6-1.3); GFR ESTIMATE (CALCULATED) > 59 mL/min/ (58.99-99999); GLUCOSE 102 mg/dL (70-99); MAGNESIUM 1.9 mg/dl (1.3-2.7); PHOSPHORUS 3.5 mg/dL (2.5-4.9); POTASSIUM 3.9 MEQ/L (3.7-5.4); SODIUM 133 MEQ/L (136-147); SODIUM 134 MEQ/L (136-147); TOTAL BILIRUBIN 0.2 MG/DL (0.0-1.0); TOTAL PROTEIN 6.4 G/DL (6.4-8.3); UREA NITROGEN (BUN) 18 mg/dL (9-23); UREA NITROGEN (BUN) 19 mg/dL (9-23)
[2017-10-20 08:34] VITALS: BP 115/57
[2017-10-20 11:59] VITALS: BP 100/62
[2017-10-20 15:49] VITALS: BP 101/54
[2017-10-20 19:23] VITALS: BP 83/47
[2017-10-20 21:32] VITALS: BP 98/58
[2017-10-21 04:06] VITALS: BP 106/64
[2017-10-21 06:34] LABS: BASOPHIL (%) 1.1 % (0-1); BASOPHIL COUNT 0.1 K/uL (0-0.1); EOSINOPHIL (%) 2.7 % (0-5); EOSINOPHIL COUNT 0.2 K/uL (0-0.3); HEMATOCRIT 26.4 % (38.0-50.0); IMMATURE GRANULOCYTE (%) 0.4 % (0.0-0.7); LYMPHOCYTE (%) 17.9 % (15-42); MCH 24.1 PG (29.0-34.0); MCHC 30.3 G/DL (30.0-36.0); MCV 79.5 FL (86-99); MONOCYTE (%) 12.3 % (3-12); MONOCYTE COUNT 0.7 K/uL (0-0.8); NEUTROPHIL (%) 65.6 % (45-76); NEUTROPHIL COUNT 3.7 K/uL (1.8-6.4); PLATELET COUNT 461 K/uL (156-360); RBC DIS.WIDTH-CV 24.9 % (11.8-14.6); RBC DIS.WIDTH-SD 72.6 % (39-53); RED BLOOD COUNT 3.32 M/uL (4.00-5.50); WHITE BLOOD COUNT 5.6 K/uL (4.1-10.2)
[2017-10-21 07:08] LABS: ALKALINE PHOSPHATASE 70 IU/L (3-129); ALT (GPT) 9 IU/L (3-49); AST (GOT) 13 IU/L (2-34); CHLORIDE 100 MEQ/L (99-109); CREATININE 0.4 MG/DL (0.6-1.3); DIRECT BILIRUBIN 0.1 mg/dL (0.0-0.3); GFR ESTIMATE (CALCULATED) > 59 mL/min/ (58.99-99999); GLUCOSE 86 mg/dL (70-99); MAGNESIUM 1.7 mg/dl (1.3-2.7); PHOSPHORUS 3.9 mg/dL (2.5-4.9); POTASSIUM 4.3 MEQ/L (3.7-5.4); PREALBUMIN 6.3 mg/dL (10-40); SODIUM 132 MEQ/L (136-147); TOTAL BILIRUBIN 0.2 MG/DL (0.0-1.0); TRIGLYCERIDES 76 MG/DL (Normal: <150); UREA NITROGEN (BUN) 16 mg/dL (9-23)
[2017-10-21 12:10] VITALS: BP 95/54
[2017-10-21 15:47] VITALS: BP 98/60
[2017-10-21 20:20] VITALS: BP 97/58
[2017-10-22] VITALS (7 sets, daily range): BP systolic 96–111; BP diastolic 57–71
[2017-10-22 06:48] LABS: BASOPHIL (%) 0.6 % (0-1); EOSINOPHIL (%) 2.3 % (0-5); EOSINOPHIL COUNT 0.1 K/uL (0-0.3); HEMATOCRIT 27.6 % (38.0-50.0); HEMOGLOBIN 8.5 G/DL (12.5-16.6); IMMATURE GRANULOCYTE (%) 0.3 % (0.0-0.7); LYMPHOCYTE (%) 16.3 % (15-42); MCH 24.4 PG (29.0-34.0); MCHC 30.8 G/DL (30.0-36.0); MCV 79.3 FL (86-99); MONOCYTE (%) 11.3 % (3-12); MONOCYTE COUNT 0.7 K/uL (0-0.8); NEUTROPHIL (%) 69.2 % (45-76); NEUTROPHIL COUNT 4.3 K/uL (1.8-6.4); NRBC (%) 0.6 /100 WBC (0-0); PLATELET COUNT 490 K/uL (156-360); RBC DIS.WIDTH-CV 24.8 % (11.8-14.6); RBC DIS.WIDTH-SD 72.1 % (39-53); RED BLOOD COUNT 3.48 M/uL (4.00-5.50); WHITE BLOOD COUNT 6.2 K/uL (4.1-10.2)
[2017-10-22 07:16] LABS: CHLORIDE 99 MEQ/L (99-109); CREATININE 0.3 MG/DL (0.6-1.3); GFR ESTIMATE (CALCULATED) > 59 mL/min/ (58.99-99999); GLUCOSE 101 mg/dL (70-99); MAGNESIUM 1.9 mg/dl (1.3-2.7); POTASSIUM 4.3 MEQ/L (3.7-5.4); SODIUM 131 MEQ/L (136-147); UREA NITROGEN (BUN) 13 mg/dL (9-23)
[2017-10-23 04:27] VITALS: BP 105/63
[2017-10-23 06:28] LABS: HEMATOCRIT 26.3 % (38.0-50.0); MCH 23.5 PG (29.0-34.0); MCHC 30.4 G/DL (30.0-36.0); MCV 77.4 FL (86-99); PLATELET COUNT 509 K/uL (156-360); RBC DIS.WIDTH-CV 24.7 % (11.8-14.6); RBC DIS.WIDTH-SD 71.3 % (39-53); WHITE BLOOD COUNT 5.9 K/uL (4.1-10.2)
[2017-10-23 06:53] LABS: CHLORIDE 99 MEQ/L (99-109); CREATININE 0.3 MG/DL (0.6-1.3); GFR ESTIMATE (CALCULATED) > 59 mL/min/ (58.99-99999); GLUCOSE 101 mg/dL (70-99); PHOSPHORUS 3.9 mg/dL (2.5-4.9); POTASSIUM 4.2 MEQ/L (3.7-5.4); SODIUM 132 MEQ/L (136-147); UREA NITROGEN (BUN) 13 mg/dL (9-23)
[2017-10-23 06:56] LABS: MAGNESIUM 1.6 mg/dl (1.3-2.7)
[2017-10-23 07:42] VITALS: BP 105/68
[2017-10-23 12:18] VITALS: BP 91/53
[2017-10-23 12:22] LABS: 24 HR VOLUME 700 MLS; URINE UREA NITROGEN 4333 MG/24 HR
[2017-10-23 16:03] VITALS: BP 102/55
[2017-10-23 20:29] VITALS: BP 91/53
[2017-10-23 23:22] VITALS: BP 91/45
[2017-10-24 07:11] LABS: CHLORIDE 101 MEQ/L (99-109); CREATININE 0.3 MG/DL (0.6-1.3); GFR ESTIMATE (CALCULATED) > 59 mL/min/ (58.99-99999); GLUCOSE 102 mg/dL (70-99); POTASSIUM 4.4 MEQ/L (3.7-5.4); SODIUM 133 MEQ/L (136-147); UREA NITROGEN (BUN) 14 mg/dL (9-23)
[2017-10-24 07:12] LABS: MAGNESIUM 1.9 mg/dl (1.3-2.7)
[2017-10-24 08:59] VITALS: BP 108/70
[2017-10-24] MEDS ORDERED: PANTOPRAZOLE SO40 MG PO (11:11)
[2017-10-24] MEDS ORDERED: GABAPENTIN300 MG PO (11:11)
[2017-10-24] MEDS ORDERED: SENNA LAX8.6 MG PO (11:11)
[2017-10-24] MEDS ORDERED: DRONABINOL2.5 MG PO (11:11)
[2017-10-24] MEDS ORDERED: LOVENOX100 MG/1 M SC (11:11)
[2017-10-24] MEDS ORDERED: SODIUM CHLORIDE1 G1 PO (11:11)
[2017-10-24] MEDS ORDERED: LEVOTHYROXINE100 MCG PO (11:11)
[2017-10-24] MEDS ORDERED: DOCUSATE SODIU100 MG PO (11:11)
[2017-10-24] MEDS ORDERED: MYCOSTATIN 100,60 ML MM (11:11)
[2017-10-24] MEDS ORDERED: TRAMADOL HCL50 MG PO (11:11)
[2017-10-24] MEDS ORDERED: LIDOCARE1 EACH TP (11:11)
[2017-10-24 12:44] VITALS: BP 109/65
== END 2017-10-24 14:47 | DRG 820 ==
LOC: EME 12:18 → 5SOUTH 15:50 → EDOF 15:50 → 4EAST 15:50 → 4SOUTH 15:50 → ENRESERV 15:52 → 4EAST 09-23 17:23 → ENRESERV 09-28 03:35 → 2EASTP 09-28 05:26 → ENRESERV 09-28 12:33 → 2EASTP 09-28 12:36 → ENRESERV 09-28 13:00 → 2EASTP 09-28 13:50 → 4WEST 09-28 13:56 → ENRESERV 09-30 10:19 → 4EAST 10-01 17:12 → ENRESERV 10-04 23:21 → 4SOUTH 10-05 00:13 → ENRESERV 10-20 19:59 → 5SOUTH 10-20 21:21 → ENPENDDIS 10-24 14:09 → 5SOUTH 10-24 14:47
PROVIDERS: Emergency Medicine; Family Medicine; Hospitalist; Internal Medicine; Internal Medicine Pulmonary Disease; Physician Assistant; Physician Assistant Surgical; Student in an Organized Health Care Education/Training Program
PROC: 30233N1 Transfusion of Nonautologous Red Blood Cells into Peripheral Vein, Percutaneous Approach (ICD-10-PCS; 2017-09-22)
PROC: 0DBK8ZX Excision of Ascending Colon, Via Natural or Artificial Opening Endoscopic, Diagnostic (ICD-10-PCS; 2017-09-22)
PROC: 3E0436Z Introduction of Nutritional Substance into Central Vein, Percutaneous Approach (ICD-10-PCS; 2017-09-22)
PROC: 0W993ZX Drainage of Right Pleural Cavity, Percutaneous Approach, Diagnostic (ICD-10-PCS; principal; 2017-09-24)
PROC: 0BH17EZ Insertion of Endotracheal Airway into Trachea, Via Natural or Artificial Opening (ICD-10-PCS; 2017-09-28)
PROC: 0DTF0ZZ Resection of Right Large Intestine, Open Approach (ICD-10-PCS; 2017-09-28)
PROC: 06H03DZ Insertion of Intraluminal Device into Inferior Vena Cava, Percutaneous Approach (ICD-10-PCS; 2017-09-28)
PROC: B5191ZA Fluoroscopy of Inferior Vena Cava using Low Osmolar Contrast, Guidance (ICD-10-PCS; 2017-09-28)
PROC: 5A1935Z Respiratory Ventilation, Less than 24 Consecutive Hours (ICD-10-PCS; 2017-09-28)
PROC: 0D1B0ZH Bypass Ileum to Cecum, Open Approach (ICD-10-PCS; 2017-09-29)
DX: C77.2 Secondary and unspecified malignant neoplasm of intra-abdominal lymph nodes (principal); I26.99 Other pulmonary embolism without acute cor pulmonale; I82.491 Acute embolism and thrombosis of other specified deep vein of right lower extremity; J90 Pleural effusion, not elsewhere classified; N39.0 Urinary tract infection, site not specified; C18.0 Malignant neoplasm of cecum; D63.0 Anemia in neoplastic disease; E87.6 Hypokalemia; R13.10 Dysphagia, unspecified; D12.2 Benign neoplasm of ascending colon; R59.0 Localized enlarged lymph nodes; R64 Cachexia; L89.150 Pressure ulcer of sacral region, unstageable; Z68.1 Body mass index [BMI] 19.9 or less, adult; F43.21 Adjustment disorder with depressed mood; E86.1 Hypovolemia; E87.1 Hypo-osmolality and hyponatremia; D50.9 Iron deficiency anemia, unspecified; E03.9 Hypothyroidism, unspecified; R79.89 Other specified abnormal findings of blood chemistry; E83.39 Other disorders of phosphorus metabolism; E43 Unspecified severe protein-calorie malnutrition; N43.3 Hydrocele, unspecified; N28.1 Cyst of kidney, acquired; J98.11 Atelectasis; K62.1 Rectal polyp; K21.9 Gastro-esophageal reflux disease without esophagitis; K59.00 Constipation, unspecified; K66.0 Peritoneal adhesions (postprocedural) (postinfection); R18.8 Other ascites; R29.6 Repeated falls; F17.210 Nicotine dependence, cigarettes, uncomplicated; B96.1 Klebsiella pneumoniae [K. pneumoniae] as the cause of diseases classified elsewhere; H91.90 Unspecified hearing loss, unspecified ear; Z59.0 Homelessness; Z80.0 Family history of malignant neoplasm of digestive organs; Z80.1 Family history of malignant neoplasm of trachea, bronchus and lung; Z80.52 Family history of malignant neoplasm of bladder; Z85.038 Personal history of other malignant neoplasm of large intestine; Z86.711 Personal history of pulmonary embolism
CPT/HCPCS: 36600; 70450; 71045; 71260; 72193; 74018; 74177; 74230; 76770; 76937; 76942; 80048; 80048 91; 80053; 80076; 81003; 81050; 82248; 82272; 82378; 82565; 82607; 82746; 82803; 82945; 82948; 83615 91; 83690; 83735; 83880; 84100; 84134; 84157; 84439; 84443; 84478; 84481; 84484; 84540; 84630 90; 85014; 85018; 85025; 85027; 85046; 85610; 85730; 86850; 86900; 86901; 86920; 87070; 87075; 87077; 87086; 87116; 87186; 87205; 87206; 87493; 87502; 87641; 88108; 88305; 88309; 89051; 92610 GN; 92611 GN; 93005; 93306; 93971; 94002; 94799; 97530 GO; 97530 GP; 99281; 99285; A6214; C1769; C9113; J0131; J0171; J0330; J0690; J0696; J1100; J1170; J1644; J1650; J2250; J2370; J2405; J2710; J2765; J2997; J3010; J3475; J3480; J7030; J7040; J7050; P9016; P9017; P9040; P9045; P9047; Q0167; S0030

== ENCOUNTER 2017-12-03 07:53 | Day surgery (SDC) | payer OTHER ==
[~2017-12-03] VITALS: Ht 188 cm; Wt 60.3 kg
[~2017-12-03 07:53] MED LIST: CALCIUM 600 +1 EA13 PO; DEBROX15 ML LEFT EAR; DOCUSATE SODIU100 MG PO; DRONABINOL2.5 MG PO; ELIPHOS667 MG PO; FERGON324 MG PO; GABAPENTIN300 MG PO; LEVOTHYROXINE100 MCG PO; LIDOCARE1 EACH TP; LOVENOX100 MG/1 M SC; MYCOSTATIN 100,60 ML MM; PANTOPRAZOLE SO40 MG PO; PROTONIX40 MG PO; RECTICARE30 GM TP; SENNA LAX8.6 MG PO; SODIUM CHLORIDE1 G1 PO; SORE THROAT LO1 EAC2 MM; TRAMADOL HCL50 MG PO; TYLENOL REGULA325 MG PO; XARELTO20 MG PO; ZOFRAN4 MG PO
[2017-12-03 08:21] VITALS: BP 98/64
[2017-12-03 08:24] LABS: HEMATOCRIT 28.8 % (38.0-50.0); HEMOGLOBIN 8.5 G/DL (12.5-16.6); MCV 75.8 FL (86-99)
[2017-12-03 12:10] VITALS: BP 112/68
[2017-12-03 12:55] VITALS: BP 109/73
== END 2017-12-03 13:10 | disposition home or self-care (01) ==
LOC: SDC 07:53
PROVIDERS: Student in an Organized Health Care Education/Training Program
PROC: 0DBP8ZX Excision of Rectum, Via Natural or Artificial Opening Endoscopic, Diagnostic (ICD-10-PCS; principal; 2017-12-03)
DX: C20 Malignant neoplasm of rectum (principal); C18.2 Malignant neoplasm of ascending colon; Z86.711 Personal history of pulmonary embolism; R64 Cachexia; Z79.01 Long term (current) use of anticoagulants
CPT/HCPCS: 85014; 85018; 88305; J1100; J1170; J2405; S0074

== ENCOUNTER 2017-12-25 11:29 | Day surgery (SDC) | payer OTHER ==
[~2017-12-25] VITALS: Ht 185.4 cm; Wt 62.6 kg
[~2017-12-25 11:29] MED LIST changes: +ACETAMINOPHEN325 M1 PO; +ALLERGY MEDICIN25 M2 PO; +CALCIUM + D3 E1 EACH PO; +ELIQUIS5 MG PO; +FERROUS GLUCON324 MG PO; +LEVO-T100 MCG PO; +LMX 530 GM TP; +MAG6464 M2 PO; +MARINOL10 MG PO; +NEURONTIN300 MG PO; +ULTRAM50 MG PO
[2017-12-25 12:27] VITALS: BP 117/70
[2017-12-25 12:31] LABS: INTER. NORMALIZED RATIO 1.2
[2017-12-25 12:34] LABS: PTT 27.3 SEC (25-37)
[2017-12-25] MEDS ORDERED: LOVENOX80 MG/0.8 SC (12:59)
[2017-12-25] MEDS ORDERED: NORCO 5/3251 TABLET PO (15:22)
[2017-12-25 16:00] VITALS: BP 114/73
[2017-12-25 16:45] VITALS: BP 139/79
== END 2017-12-25 17:00 | disposition short-term general hospital (02) ==
LOC: SDC 11:29
PROVIDERS: Surgery
DX: Z45.2 Encounter for adjustment and management of vascular access device (principal); I87.8 Other specified disorders of veins; C18.9 Malignant neoplasm of colon, unspecified; K21.9 Gastro-esophageal reflux disease without esophagitis; E03.9 Hypothyroidism, unspecified; I10 Essential (primary) hypertension; Z86.711 Personal history of pulmonary embolism; Z79.01 Long term (current) use of anticoagulants
CPT/HCPCS: 71045; 85610; 85730; C1751; J0690; J2250

== ENCOUNTER 2018-04-13 00:23 | Inpatient (IN) | payer OTHER ==
[2018-04-13] VITALS (17 sets, daily range): BP systolic 103–133; BP diastolic 71–104
[~2018-04-13] VITALS: Ht 172.7 cm; Wt 74.8 kg
[~2018-04-13 00:23] MED LIST changes: +LOVENOX80 MG/0.8 SC; +NORCO 5/3251 TABLET PO
[2018-04-13 01:32] LABS: HEMATOCRIT 35.8 % (38.0-50.0); HEMOGLOBIN 11.5 G/DL (12.5-16.6); MCH 25.7 PG (29.0-34.0); MCHC 32.1 G/DL (30.0-36.0); MCV 79.9 FL (86-99); NRBC (%) 0.5 /100 WBC (0-0); RBC DIS.WIDTH-CV 23.9 % (11.8-14.6); RBC DIS.WIDTH-SD 68.5 % (39-53); RED BLOOD COUNT 4.48 M/uL (4.00-5.50); WHITE BLOOD COUNT 5.5 K/uL (4.1-10.2)
[2018-04-13 01:37] LABS: BASOPHIL (%) 0.4 % (0-1); EOSINOPHIL (%) 0 % (0-5); IMMATURE GRANULOCYTE (%) 0.7 % (0.0-0.7); LYMPHOCYTE (%) 15.5 % (15-42); LYMPHOCYTE COUNT 0.9 K/uL (1.0-2.8); MONOCYTE (%) 5.6 % (3-12); MONOCYTE COUNT 0.3 K/uL (0-0.8); NEUTROPHIL (%) 77.8 % (45-76); NEUTROPHIL COUNT 4.3 K/uL (1.8-6.4)
[2018-04-13 01:46] LABS: ALBUMIN 3.4 g/dL (3.2-4.8); CHLORIDE 108 mEq/L (99-109); POTASSIUM 5.1 mEq/L (3.7-5.4)
[2018-04-13 01:47] LABS: SODIUM 137 mEq/L (136-147)
[2018-04-13 01:49] LABS: GLUCOSE 137 mg/dL (70-99); TOTAL PROTEIN 6.8 g/dL (6.4-8.3)
[2018-04-13 01:51] LABS: TOTAL BILIRUBIN 0.7 mg/dL (0.0-1.0)
[2018-04-13 01:52] LABS: ALKALINE PHOSPHATASE 111 IU/L (3-129); CREATININE 1.5 mg/dL (0.6-1.3); GFR ESTIMATE (CALCULATED) 50 mL/min/ (58.99-99999)
[2018-04-13 01:53] LABS: TROP-I INTERPRETATION NEGATIVE; TROPONIN-I 0.07 ng/mL (0.0-0.30)
[2018-04-13 01:54] LABS: AST (GOT) 55 IU/L (2-34); UREA NITROGEN (BUN) 30 mg/dL (9-23)
[2018-04-13 01:55] LABS: ALT (GPT) 40 IU/L (3-49)
[2018-04-13 02:35] LABS: PLATELET COUNT 68 K/uL (156-360)
[2018-04-13 03:45] LABS: APPEARANCE SL.HAZY ((CLEAR)); BILIRUBIN NEGATIVE; BLOOD LARGE; COLOR AMBER ((YELLOW)); GLUCOSE (STRIP) NEGATIVE; KETONES NEGATIVE; LEUKOCYTES TRACE; NITRITE NEGATIVE; PROTEIN (STRIP) >=500; SPECIFIC GRAVITY 1.033 (1.000-1.030); UROBILINOGEN 0.2 MG/DL (0.2-1.0)
[2018-04-13 03:50] LABS: BACTERIA RARE /HPF; EPITHELIAL CELLS RARE /HPF; HYALINE CASTS 15-20 /LPF; MUCUS TRACE /LPF; UCUL ADDED? YES; WHITE BLOOD CELLS 15-20 /HPF (0-5)
[2018-04-13 06:04] LABS: COMMENTS - BLOOD GASES A+C+; DEVICE NC; O2 FLOW 2 L/MIN; PCO2 31 mm Hg (35-45); PO2 69 mm Hg (80-100); SITE RR
[2018-04-13 06:05] LABS: BICARBONATE 14.6 mEq/L (22-26); CARBOXY HGB 1.7 % (0-5); METHEMOGLOBIN 0.7 % (0-1.5); O2 SATURATION (CALCULATED) 92.3 % (95-99); pH 7.28 (7.35-7.45)
[2018-04-13 09:13] LABS: CARBOXY HGB 1.2 % (0-5); COMMENTS - BLOOD GASES C+; DEVICE NC; METHEMOGLOBIN 0.4 % (0-1.5); O2 FLOW 2 L/MIN; PCO2 31 mm Hg (35-45); PO2 76 mm Hg (80-100); SITE RB; TOTAL RESP RATE 50 resp/min
[2018-04-13 09:14] LABS: BASE EXCESS -12.4 mEq/L (-3 to +3); BICARBONATE 13.6 mEq/L (22-26); pH 7.25 (7.35-7.45)
[2018-04-13 09:43] LABS: TROP-I INTERPRETATION NEGATIVE
[2018-04-13 09:49] LABS: ALBUMIN 2.8 G/DL (3.2-4.8); ALKALINE PHOSPHATASE 87 IU/L (3-129); ALT (GPT) 47 IU/L (3-49); AST (GOT) 76 IU/L (2-34); CHLORIDE 112 MEQ/L (99-109); CREATININE 1.4 MG/DL (0.6-1.3); GFR ESTIMATE (CALCULATED) 54 mL/min/ (58.99-99999); GLUCOSE 122 mg/dL (70-99); HIGH-SENS C-REACTIVE PROTEIN 5.11 MG/DL (0.02-0.20); POTASSIUM 4.8 MEQ/L (3.7-5.4); SODIUM 140 MEQ/L (136-147); TOTAL BILIRUBIN 0.6 MG/DL (0.0-1.0); TOTAL PROTEIN 5.4 G/DL (6.4-8.3); UREA NITROGEN (BUN) 30 mg/dL (9-23)
[2018-04-13 09:50] LABS: BASOPHIL (%) 0.2 % (0-1); EOSINOPHIL (%) 0 % (0-5); HEMATOCRIT 35.4 % (38.0-50.0); IMMATURE GRANULOCYTE (%) 0.5 % (0.0-0.7); LYMPHOCYTE (%) 17.9 % (15-42); LYMPHOCYTE COUNT 0.8 K/uL (1.0-2.8); MCH 25.6 PG (29.0-34.0); MCHC 31.1 G/DL (30.0-36.0); MCV 82.5 FL (86-99); MONOCYTE COUNT 0.4 K/uL (0-0.8); NEUTROPHIL (%) 72.4 % (45-76); NRBC (%) 1.4 /100 WBC (0-0); RBC DIS.WIDTH-CV 24.5 % (11.8-14.6); RBC DIS.WIDTH-SD 71.6 % (39-53); RED BLOOD COUNT 4.29 M/uL (4.00-5.50); WHITE BLOOD COUNT 4.2 K/uL (4.1-10.2)
[2018-04-13 09:51] LABS: IMM.PLATELET FRACTION 4.7 (1-7); PLAT.SUFFICIENCY DECREASED; PLATELET COUNT 56 K/uL (156-360)
[2018-04-13 09:59] LABS: THYROTROPIN (TSH) 5.1 MIU/L (0.4-5.5)
[2018-04-13 10:23] LABS: INTER. NORMALIZED RATIO 2.4
[2018-04-13 10:25] LABS: PTT 29.9 SEC (25-37)
[2018-04-13 12:37] LABS: LACTATE DEHYDROGENASE 313 IU/L (20-246)
[2018-04-13 15:57] LABS: BASE EXCESS -17.5 mEq/L (-3 to +3); CARBOXY HGB 0.9 % (0-5); DEVICE NC; METHEMOGLOBIN 0.7 % (0-1.5); O2 FLOW 2 L/MIN; PCO2 19 mm Hg (35-45); PO2 100 mm Hg (80-100); SITE LR; TOTAL RESP RATE 32 resp/min; pH 7.23 (7.35-7.45)
[2018-04-13 15:58] LABS: COMMENTS - BLOOD GASES A+C+
[2018-04-13 16:56] LABS: ALBUMIN 2.9 g/dL (3.2-4.8)
[2018-04-13 16:57] LABS: CHLORIDE 112 mEq/L (99-109); POTASSIUM 5.2 mEq/L (3.7-5.4); SODIUM 143 mEq/L (136-147)
[2018-04-13 16:59] LABS: GLUCOSE 99 mg/dL (70-99)
[2018-04-13 17:03] LABS: CREATININE 1.6 mg/dL (0.6-1.3); GFR ESTIMATE (CALCULATED) 46 mL/min/ (58.99-99999)
[2018-04-13 17:04] LABS: ALKALINE PHOSPHATASE 100 IU/L (3-129)
[2018-04-13 17:05] LABS: AST (GOT) 179 IU/L (2-34); TOTAL BILIRUBIN 0.9 mg/dL (0.0-1.0); TOTAL PROTEIN 5.5 g/dL (6.4-8.3); UREA NITROGEN (BUN) 33 mg/dL (9-23)
[2018-04-13 17:06] LABS: SALICYLATE < 5.0 MG/DL (15-30)
[2018-04-13 17:07] LABS: URIC ACID 10.3 mg/dL (3.1-9.2)
[2018-04-13 17:08] LABS: ALT (GPT) 113 IU/L (3-49)
[2018-04-14] VITALS (31 sets, daily range): BP systolic 82–130; BP diastolic 57–872
[2018-04-14 06:06] LABS: HEMATOCRIT 35.5 % (38.0-50.0); HEMOGLOBIN 10.7 G/DL (12.5-16.6); MCH 25.6 PG (29.0-34.0); MCHC 30.1 G/DL (30.0-36.0); MCV 84.9 FL (86-99); NRBC (%) 2.1 /100 WBC (0-0); RBC DIS.WIDTH-SD 75.4 % (39-53); RED BLOOD COUNT 4.18 M/uL (4.00-5.50); WHITE BLOOD COUNT 9.1 K/uL (4.1-10.2)
[2018-04-14 06:40] LABS: CHLORIDE 110 MEQ/L (99-109); CREATININE 1.6 MG/DL (0.6-1.3); GFR ESTIMATE (CALCULATED) 46 mL/min/ (58.99-99999); GLUCOSE 135 mg/dL (70-99); MAGNESIUM 1.9 mg/dl (1.3-2.7); PHOSPHORUS 4.6 mg/dL (2.5-4.9); POTASSIUM 4.7 MEQ/L (3.7-5.4); SODIUM 140 MEQ/L (136-147); UREA NITROGEN (BUN) 37 mg/dL (9-23)
[2018-04-14 06:44] LABS: PLATELET COUNT 53 K/uL (156-360)
[2018-04-14 08:17] LABS: C DIFF TOXIN POSITIVE (NEGATIVE)
[2018-04-14 09:40] LABS: COMMENTS - BLOOD GASES A+C+; DEVICE VENT; FI02 30 %; MODE SPONT; O2 FLOW 60 L/MIN; PCO2 19 mm Hg (35-45); PEEP 6 CM/H20; PO2 116 mm Hg (80-100); PRES. SUPPORT 12 CM/H2O; SITE LR; TOTAL RESP RATE 31 resp/min; pH 7.33 (7.35-7.45)
[2018-04-14 09:41] LABS: CARBOXY HGB 0.8 % (0-5); METHEMOGLOBIN 1 % (0-1.5); O2 SATURATION (CALCULATED) 98.4 % (95-99)
[2018-04-14 15:21] LABS: HEMATOCRIT 33.9 % (38.0-50.0); HEMOGLOBIN 10.9 G/DL (12.5-16.6); MCHC 32.2 G/DL (30.0-36.0); NRBC (%) 1.6 /100 WBC (0-0); RBC DIS.WIDTH-CV 24.8 % (11.8-14.6); RBC DIS.WIDTH-SD 70.4 % (39-53); WHITE BLOOD COUNT 8.2 K/uL (4.1-10.2)
[2018-04-14 15:22] LABS: ALBUMIN 3.1 g/dL (3.2-4.8); CHLORIDE 112 mEq/L (99-109); POTASSIUM 4.5 mEq/L (3.7-5.4); SODIUM 142 mEq/L (136-147)
[2018-04-14 15:23] LABS: MAGNESIUM 1.7 mg/dL (1.3-2.7)
[2018-04-14 15:24] LABS: GLUCOSE 102 mg/dL (70-99); TOTAL PROTEIN 6.1 g/dL (6.4-8.3)
[2018-04-14 15:26] LABS: TOTAL BILIRUBIN 0.9 mg/dL (0.0-1.0)
[2018-04-14 15:28] LABS: ALKALINE PHOSPHATASE 99 IU/L (3-129); CREATININE 1.8 mg/dL (0.6-1.3); GFR ESTIMATE (CALCULATED) 40 mL/min/ (58.99-99999); PHOSPHORUS 4.2 mg/dL (2.5-4.9)
[2018-04-14 15:29] LABS: UREA NITROGEN (BUN) 42 mg/dL (9-23)
[2018-04-14 15:30] LABS: MCV 80.7 FL (86-99)
[2018-04-14 15:31] LABS: TROP-I INTERPRETATION NEGATIVE; TROPONIN-I 0.17 ng/mL (0.0-0.30)
[2018-04-14 15:41] LABS: ALT (GPT) 961 IU/L (3-49); AST (GOT) 2197 IU/L (2-34); CREATINE KINASE 2023 IU/L (1-294)
[2018-04-14 16:34] LABS: BASOPHIL (%) 0.1 % (0-1); EOSINOPHIL (%) 0 % (0-5); IMMATURE GRANULOCYTE (%) 2.4 % (0.0-0.7); LYMPHOCYTE (%) 13.4 % (15-42); LYMPHOCYTE COUNT 1.1 K/uL (1.0-2.8); MONOCYTE (%) 8.2 % (3-12); MONOCYTE COUNT 0.7 K/uL (0-0.8); NEUTROPHIL (%) 75.9 % (45-76); NEUTROPHIL COUNT 6.2 K/uL (1.8-6.4); PLATELET COUNT 49 K/uL (156-360)
[2018-04-14 17:08] LABS: TRIGLYCERIDES 75 MG/DL (Normal: <150)
[2018-04-14 22:08] LABS: COMMENTS - BLOOD GASES C+; DEVICE VENT; FI02 40 %; MECHANICAL RATE 24 resp/min; MODE AC; PCO2 20 mm Hg (35-45); PEEP 5 CM/H20; PO2 124 mm Hg (80-100); SITE A-LINE; TIDAL VOLUME 600 ML; TOTAL RESP RATE 24 resp/min; pH 7.44 (7.35-7.45)
[2018-04-14 22:09] LABS: BICARBONATE 13.6 mEq/L (22-26); CARBOXY HGB 1.3 % (0-5); METHEMOGLOBIN 0.5 % (0-1.5)
[2018-04-14 22:10] LABS: SITE CENTRAL LINE
[2018-04-14 22:10] LABS: BASE EXCESS -9.1 mEq/L (-3 to +3)
[2018-04-14 22:11] LABS: COMMENTS - BLOOD GASES C+ DRAWN BY RN; PCO2 30 mm Hg (35-45); PO2 < 30 mm Hg (80-100); pH 7.39 (7.35-7.45)
[2018-04-14 23:27] LABS: SITE CENTRAL LINE
[2018-04-14 23:28] LABS: DEVICE VENT; FI02 40 %; MECHANICAL RATE 24 resp/min; MODE AC; PCO2 27 mm Hg (35-45); PEEP 5 CM/H20; PO2 31 mm Hg (80-100); TIDAL VOLUME 600 ML; TOTAL RESP RATE 24 resp/min; pH 7.41 (7.35-7.45)
[2018-04-14 23:29] LABS: BASE EXCESS -6.5 mEq/L (-3 to +3); BICARBONATE 17.1 mEq/L (22-26); CARBOXY HGB 0.9 % (0-5); METHEMOGLOBIN 0.7 % (0-1.5)
[2018-04-15] VITALS (11 sets, daily range): BP systolic 102–135; BP diastolic 60–80
[2018-04-15 04:31] LABS: SITE CENTRAL LINE
[2018-04-15 04:32] LABS: BASE EXCESS -3.7 mEq/L (-3 to +3); BICARBONATE 19.2 mEq/L (22-26); CARBOXY HGB 0.7 % (0-5); DEVICE VENT; FI02 40 %; MECHANICAL RATE 24 resp/min; METHEMOGLOBIN 0.9 % (0-1.5); MODE AC; PCO2 27 mm Hg (35-45); PEEP 5 CM/H20; PO2 31 mm Hg (80-100); TIDAL VOLUME 600 ML; TOTAL RESP RATE 24 resp/min; pH 7.46 (7.35-7.45)
[2018-04-15 05:24] LABS: CHLORIDE 114 mEq/L (99-109); SODIUM 143 mEq/L (136-147)
[2018-04-15 05:25] LABS: MAGNESIUM 1.7 mg/dL (1.3-2.7)
[2018-04-15 05:26] LABS: GLUCOSE 112 mg/dL (70-99)
[2018-04-15 05:30] LABS: CREATININE 1.7 mg/dL (0.6-1.3); GFR ESTIMATE (CALCULATED) 43 mL/min/ (58.99-99999)
[2018-04-15 05:31] LABS: BASOPHIL (%) 0.2 % (0-1); EOSINOPHIL (%) 0.3 % (0-5); HEMATOCRIT 28.4 % (38.0-50.0); HEMOGLOBIN 9.5 G/DL (12.5-16.6); IMMATURE GRANULOCYTE (%) 2.3 % (0.0-0.7); LYMPHOCYTE (%) 13.5 % (15-42); LYMPHOCYTE COUNT 0.8 K/uL (1.0-2.8); MCH 26.5 PG (29.0-34.0); MCHC 33.5 G/DL (30.0-36.0); MCV 79.1 FL (86-99); MONOCYTE (%) 5.4 % (3-12); MONOCYTE COUNT 0.3 K/uL (0-0.8); NEUTROPHIL (%) 78.3 % (45-76); NEUTROPHIL COUNT 4.7 K/uL (1.8-6.4); NRBC (%) 1.3 /100 WBC (0-0); RBC DIS.WIDTH-CV 24.4 % (11.8-14.6); RBC DIS.WIDTH-SD 68.7 % (39-53); RED BLOOD COUNT 3.59 M/uL (4.00-5.50); WHITE BLOOD COUNT 6.1 K/uL (4.1-10.2)
[2018-04-15 05:31] LABS: UREA NITROGEN (BUN) 41 mg/dL (9-23)
[2018-04-15 05:32] LABS: PLATELET COUNT 78 K/uL (156-360)
[2018-04-15 05:41] LABS: PHOSPHORUS 2.3 mg/dL (2.5-4.9); POTASSIUM 3.5 mEq/L (3.7-5.4)
[2018-04-15 22:58] LABS: Heparin Induced Plt Ab Negative (Negative)
[2018-04-16] VITALS: BP 125/88
[2018-04-16 01:00] VITALS: BP 124/66
[2018-04-16 04:00] VITALS: BP 114/78
[2018-04-16 08:00] VITALS: BP 113/80
[2018-04-16 10:07] LABS: ALBUMIN 2.7 g/dL (3.2-4.8); CHLORIDE 114 mEq/L (99-109); POTASSIUM 3.6 mEq/L (3.7-5.4); SODIUM 140 mEq/L (136-147)
[2018-04-16 10:10] LABS: GLUCOSE 102 mg/dL (70-99); TOTAL PROTEIN 5.3 g/dL (6.4-8.3)
[2018-04-16 10:13] LABS: ALKALINE PHOSPHATASE 101 IU/L (3-129); PHOSPHORUS 2.3 mg/dL (2.5-4.9); TOTAL BILIRUBIN 1.6 mg/dL (0.0-1.0)
[2018-04-16 10:14] LABS: GFR ESTIMATE (CALCULATED) > 59 mL/min/ (58.99-99999)
[2018-04-16 10:15] LABS: CREATININE 1.1 mg/dL (0.6-1.3); UREA NITROGEN (BUN) 23 mg/dL (9-23)
[2018-04-16 10:17] LABS: ALT (GPT) 560 IU/L (3-49); AST (GOT) 650 IU/L (2-34)
[2018-04-16 10:18] LABS: DEVICE 840; FI02 40 %; MODE SPONT; SITE ALINE
[2018-04-16 10:19] LABS: BASE EXCESS -5.3 mEq/L (-3 to +3); BICARBONATE 18.6 mEq/L (22-26); CARBOXY HGB 1.3 % (0-5); METHEMOGLOBIN 0.9 % (0-1.5); PCO2 30 mm Hg (35-45); PEEP 5 CM/H20; PO2 96 mm Hg (80-100); PRES. SUPPORT 10 CM/H2O; TIDAL VOLUME 560 ML; TOTAL RESP RATE 28 resp/min
[2018-04-16 12:00] VITALS: BP 115/80
[2018-04-16 16:26] LABS: CHLORIDE 114 MEQ/L (99-109); CREATININE 1.1 MG/DL (0.6-1.3); GFR ESTIMATE (CALCULATED) > 59 mL/min/ (58.99-99999); GLUCOSE 91 mg/dL (70-99); MAGNESIUM 1.9 mg/dl (1.3-2.7); PHOSPHORUS 3.4 mg/dL (2.5-4.9); POTASSIUM 3.9 MEQ/L (3.7-5.4); SODIUM 142 MEQ/L (136-147); UREA NITROGEN (BUN) 20 mg/dL (9-23)
[2018-04-16 19:00] VITALS: BP 128/72
[2018-04-17] VITALS (10 sets, daily range): BP systolic 96–135; BP diastolic 66–92
[2018-04-17 06:06] LABS: BASOPHIL (%) 0.1 % (0-1); EOSINOPHIL (%) 0.8 % (0-5); EOSINOPHIL COUNT 0.1 K/uL (0-0.3); HEMATOCRIT 32.2 % (38.0-50.0); HEMOGLOBIN 9.9 G/DL (12.5-16.6); IMMATURE GRANULOCYTE (%) 0.7 % (0.0-0.7); LYMPHOCYTE (%) 8.4 % (15-42); LYMPHOCYTE COUNT 0.7 K/uL (1.0-2.8); MCH 25.5 PG (29.0-34.0); MCHC 30.7 G/DL (30.0-36.0); MONOCYTE (%) 9.9 % (3-12); MONOCYTE COUNT 0.8 K/uL (0-0.8); NEUTROPHIL (%) 80.1 % (45-76); NEUTROPHIL COUNT 6.6 K/uL (1.8-6.4); NRBC (%) 0.4 /100 WBC (0-0); PLATELET COUNT 77 K/uL (156-360); RBC DIS.WIDTH-CV 25.3 % (11.8-14.6); RED BLOOD COUNT 3.88 M/uL (4.00-5.50); WHITE BLOOD COUNT 8.3 K/uL (4.1-10.2)
[2018-04-17 06:29] LABS: ALBUMIN 2.6 G/DL (3.2-4.8); ALKALINE PHOSPHATASE 93 IU/L (3-129); CHLORIDE 112 MEQ/L (99-109); CREATININE 1.1 MG/DL (0.6-1.3); GFR ESTIMATE (CALCULATED) > 59 mL/min/ (58.99-99999); GLUCOSE 75 mg/dL (70-99); MAGNESIUM 1.9 mg/dl (1.3-2.7); PHOSPHORUS 2.5 mg/dL (2.5-4.9); POTASSIUM 3.7 MEQ/L (3.7-5.4); SODIUM 144 MEQ/L (136-147); TOTAL PROTEIN 5.4 G/DL (6.4-8.3); UREA NITROGEN (BUN) 16 mg/dL (9-23)
[2018-04-17 06:39] LABS: ALT (GPT) 431 IU/L (3-49); AST (GOT) 498 IU/L (2-34); TOTAL BILIRUBIN 1.3 MG/DL (0.0-1.0)
[2018-04-17 07:13] LABS: UFH SRA Result Negative (Negative)
[2018-04-18] VITALS (15 sets, daily range): BP systolic 101–121; BP diastolic 63–88
[2018-04-18 04:55] LABS: BASOPHIL (%) 0.2 % (0-1); EOSINOPHIL (%) 0.3 % (0-5); HEMATOCRIT 34.8 % (38.0-50.0); HEMOGLOBIN 10.8 G/DL (12.5-16.6); IMMATURE GRANULOCYTE (%) 0.6 % (0.0-0.7); LYMPHOCYTE (%) 11.3 % (15-42); LYMPHOCYTE COUNT 1.3 K/uL (1.0-2.8); MCH 25.8 PG (29.0-34.0); MCV 83.1 FL (86-99); MONOCYTE (%) 14.8 % (3-12); MONOCYTE COUNT 1.7 K/uL (0-0.8); NEUTROPHIL (%) 72.8 % (45-76); NEUTROPHIL COUNT 8.3 K/uL (1.8-6.4); NRBC (%) 0.5 /100 WBC (0-0); PLATELET COUNT 77 K/uL (156-360); RED BLOOD COUNT 4.19 M/uL (4.00-5.50); WHITE BLOOD COUNT 11.4 K/uL (4.1-10.2)
[2018-04-18 06:10] LABS: ALBUMIN 2.8 G/DL (3.2-4.8); ALKALINE PHOSPHATASE 113 IU/L (3-129); ALT (GPT) 465 IU/L (3-49); AST (GOT) 556 IU/L (2-34); CHLORIDE 110 MEQ/L (99-109); CREATININE 1.1 MG/DL (0.6-1.3); GFR ESTIMATE (CALCULATED) > 59 mL/min/ (58.99-99999); PHOSPHORUS 3.1 mg/dL (2.5-4.9); POTASSIUM 4.3 MEQ/L (3.7-5.4); SODIUM 141 MEQ/L (136-147); TOTAL PROTEIN 5.9 G/DL (6.4-8.3); UREA NITROGEN (BUN) 18 mg/dL (9-23)
[2018-04-18 06:21] LABS: GLUCOSE 107 mg/dL (70-99)
[2018-04-18 19:40] LABS: CHLORIDE 108 MEQ/L (99-109); CREATININE 1.1 MG/DL (0.6-1.3); GFR ESTIMATE (CALCULATED) > 59 mL/min/ (58.99-99999); MAGNESIUM 1.7 mg/dl (1.3-2.7); PHOSPHORUS 2.2 mg/dL (2.5-4.9); POTASSIUM 3.6 MEQ/L (3.7-5.4); SODIUM 141 MEQ/L (136-147); UREA NITROGEN (BUN) 15 mg/dL (9-23)
[2018-04-18 19:42] LABS: GLUCOSE 161 mg/dL (70-99)
[2018-04-19] VITALS (16 sets, daily range): BP systolic 102–131; BP diastolic 76–98
[2018-04-19 05:47] LABS: BASOPHIL (%) 0.3 % (0-1); EOSINOPHIL (%) 0.8 % (0-5); EOSINOPHIL COUNT 0.1 K/uL (0-0.3); HEMOGLOBIN 10.7 G/DL (12.5-16.6); IMMATURE GRANULOCYTE (%) 0.6 % (0.0-0.7); LYMPHOCYTE (%) 14.5 % (15-42); LYMPHOCYTE COUNT 1.7 K/uL (1.0-2.8); MCH 25.5 PG (29.0-34.0); MCHC 30.6 G/DL (30.0-36.0); MCV 83.3 FL (86-99); MONOCYTE (%) 17.1 % (3-12); NEUTROPHIL (%) 66.7 % (45-76); NEUTROPHIL COUNT 7.7 K/uL (1.8-6.4); NRBC (%) 0.3 /100 WBC (0-0); PLATELET COUNT 71 K/uL (156-360); RBC DIS.WIDTH-CV 24.6 % (11.8-14.6); RBC DIS.WIDTH-SD 73.1 % (39-53); WHITE BLOOD COUNT 11.5 K/uL (4.1-10.2)
[2018-04-19 06:24] LABS: ALBUMIN 2.8 G/DL (3.2-4.8); ALKALINE PHOSPHATASE 91 IU/L (3-129); ALT (GPT) 355 IU/L (3-49); CHLORIDE 107 MEQ/L (99-109); CREATININE 1.3 MG/DL (0.6-1.3); GFR ESTIMATE (CALCULATED) 59 mL/min/ (58.99-99999); MAGNESIUM 1.6 mg/dl (1.3-2.7); POTASSIUM 3.8 MEQ/L (3.7-5.4); SODIUM 144 MEQ/L (136-147); TOTAL PROTEIN 6.1 G/DL (6.4-8.3); UREA NITROGEN (BUN) 15 mg/dL (9-23)
[2018-04-19 06:30] LABS: AST (GOT) 260 IU/L (2-34); GLUCOSE 95 mg/dL (70-99); PHOSPHORUS 3.1 mg/dL (2.5-4.9)
[2018-04-19 14:26] LABS: INTER. NORMALIZED RATIO 1.5
[2018-04-19 18:54] LABS: CHLORIDE 105 MEQ/L (99-109); CREATININE 1.3 MG/DL (0.6-1.3); GFR ESTIMATE (CALCULATED) 59 mL/min/ (58.99-99999); GLUCOSE 102 mg/dL (70-99); MAGNESIUM 1.5 mg/dl (1.3-2.7); PHOSPHORUS 3.4 mg/dL (2.5-4.9); POTASSIUM 3.9 MEQ/L (3.7-5.4); SODIUM 140 MEQ/L (136-147); UREA NITROGEN (BUN) 18 mg/dL (9-23)
[2018-04-20] VITALS (22 sets, daily range): BP systolic 82–121; BP diastolic 49–93
[2018-04-20 06:12] LABS: BASOPHIL (%) 0.3 % (0-1); EOSINOPHIL (%) 0.2 % (0-5); HEMATOCRIT 34.9 % (38.0-50.0); HEMOGLOBIN 10.8 G/DL (12.5-16.6); IMMATURE GRANULOCYTE (%) 0.9 % (0.0-0.7); LYMPHOCYTE (%) 13.8 % (15-42); LYMPHOCYTE COUNT 1.6 K/uL (1.0-2.8); MCH 25.5 PG (29.0-34.0); MCHC 30.9 G/DL (30.0-36.0); MCV 82.3 FL (86-99); MONOCYTE (%) 16.9 % (3-12); MONOCYTE COUNT 1.9 K/uL (0-0.8); NEUTROPHIL (%) 67.9 % (45-76); NEUTROPHIL COUNT 7.8 K/uL (1.8-6.4); NRBC (%) 0.3 /100 WBC (0-0); RBC DIS.WIDTH-CV 24.2 % (11.8-14.6); RBC DIS.WIDTH-SD 71.1 % (39-53); RED BLOOD COUNT 4.24 M/uL (4.00-5.50); WHITE BLOOD COUNT 11.4 K/uL (4.1-10.2)
[2018-04-20 06:16] LABS: ALBUMIN 2.8 G/DL (3.2-4.8); ALKALINE PHOSPHATASE 96 IU/L (3-129); ALT (GPT) 231 IU/L (3-49); CHLORIDE 104 MEQ/L (99-109); CREATININE 1.4 MG/DL (0.6-1.3); GFR ESTIMATE (CALCULATED) 54 mL/min/ (58.99-99999); GLUCOSE 90 mg/dL (70-99); MAGNESIUM 1.4 mg/dl (1.3-2.7); PHOSPHORUS 3.7 mg/dL (2.5-4.9); POTASSIUM 4.1 MEQ/L (3.7-5.4); SODIUM 141 MEQ/L (136-147); TOTAL PROTEIN 5.9 G/DL (6.4-8.3); UREA NITROGEN (BUN) 20 mg/dL (9-23)
[2018-04-20 06:22] LABS: AST (GOT) 121 IU/L (2-34)
[2018-04-20 06:58] LABS: PLAT.SUFFICIENCY DECREASED
[2018-04-20 07:11] LABS: PLATELET COUNT 105 K/uL (156-360)
[2018-04-20 18:52] LABS: CHLORIDE 104 MEQ/L (99-109); CREATININE 1.3 MG/DL (0.6-1.3); GFR ESTIMATE (CALCULATED) 59 mL/min/ (58.99-99999); GLUCOSE 123 mg/dL (70-99); MAGNESIUM 1.5 mg/dl (1.3-2.7); PHOSPHORUS 3.1 mg/dL (2.5-4.9); POTASSIUM 3.6 MEQ/L (3.7-5.4); SODIUM 139 MEQ/L (136-147); UREA NITROGEN (BUN) 21 mg/dL (9-23)
[2018-04-21] VITALS (24 sets, daily range): BP systolic 15–172; BP diastolic 65–90
[2018-04-21 05:17] LABS: BASOPHIL (%) 0.3 % (0-1); EOSINOPHIL (%) 1.3 % (0-5); EOSINOPHIL COUNT 0.1 K/uL (0-0.3); HEMATOCRIT 30.7 % (38.0-50.0); HEMOGLOBIN 9.3 G/DL (12.5-16.6); IMMATURE GRANULOCYTE (%) 0.5 % (0.0-0.7); LYMPHOCYTE (%) 11.7 % (15-42); LYMPHOCYTE COUNT 0.9 K/uL (1.0-2.8); MCH 25.3 PG (29.0-34.0); MCHC 30.3 G/DL (30.0-36.0); MCV 83.7 FL (86-99); MONOCYTE (%) 17.2 % (3-12); MONOCYTE COUNT 1.3 K/uL (0-0.8); NEUTROPHIL COUNT 5.1 K/uL (1.8-6.4); RBC DIS.WIDTH-CV 23.6 % (11.8-14.6); RBC DIS.WIDTH-SD 70.1 % (39-53); RED BLOOD COUNT 3.67 M/uL (4.00-5.50); WHITE BLOOD COUNT 7.4 K/uL (4.1-10.2)
[2018-04-21 05:42] LABS: PLATELET COUNT 146 K/uL (156-360)
[2018-04-21 06:07] LABS: ALBUMIN 2.6 G/DL (3.2-4.8); ALKALINE PHOSPHATASE 71 IU/L (3-129); ALT (GPT) 174 IU/L (3-49); AST (GOT) 74 IU/L (2-34); CHLORIDE 104 MEQ/L (99-109); CREATININE 1.4 MG/DL (0.6-1.3); GFR ESTIMATE (CALCULATED) 54 mL/min/ (58.99-99999); GLUCOSE 102 mg/dL (70-99); MAGNESIUM 1.5 mg/dl (1.3-2.7); PHOSPHORUS 2.9 mg/dL (2.5-4.9); POTASSIUM 3.5 MEQ/L (3.7-5.4); SODIUM 141 MEQ/L (136-147); TOTAL BILIRUBIN 0.8 MG/DL (0.0-1.0); TOTAL PROTEIN 5.7 G/DL (6.4-8.3); UREA NITROGEN (BUN) 19 mg/dL (9-23)
[2018-04-21 19:06] LABS: CHLORIDE 100 MEQ/L (99-109); POTASSIUM 3.8 MEQ/L (3.7-5.4); SODIUM 137 MEQ/L (136-147)
[2018-04-21 19:17] LABS: MAGNESIUM 1.8 mg/dl (1.3-2.7)
[2018-04-21 19:19] LABS: CREATININE 1.3 MG/DL (0.6-1.3); GFR ESTIMATE (CALCULATED) 59 mL/min/ (58.99-99999); GLUCOSE 119 mg/dL (70-99); PHOSPHORUS 2.5 mg/dL (2.5-4.9); UREA NITROGEN (BUN) 18 mg/dL (9-23)
[2018-04-22] VITALS (24 sets, daily range): BP systolic 90–140; BP diastolic 55–91
[2018-04-22 05:28] LABS: HEMATOCRIT 30.5 % (38.0-50.0); HEMOGLOBIN 9.3 G/DL (12.5-16.6); MCH 25.5 PG (29.0-34.0); MCHC 30.5 G/DL (30.0-36.0); MCV 83.6 FL (86-99); PLATELET COUNT 176 K/uL (156-360); RBC DIS.WIDTH-CV 22.9 % (11.8-14.6); RBC DIS.WIDTH-SD 68.2 % (39-53); RED BLOOD COUNT 3.65 M/uL (4.00-5.50); WHITE BLOOD COUNT 8.2 K/uL (4.1-10.2)
[2018-04-22 05:57] LABS: ALBUMIN 2.6 G/DL (3.2-4.8); ALKALINE PHOSPHATASE 70 IU/L (3-129); ALT (GPT) 133 IU/L (3-49); AST (GOT) 49 IU/L (2-34); CHLORIDE 101 MEQ/L (99-109); CREATININE 1.3 MG/DL (0.6-1.3); GFR ESTIMATE (CALCULATED) 59 mL/min/ (58.99-99999); GLUCOSE 92 mg/dL (70-99); MAGNESIUM 1.6 mg/dl (1.3-2.7); PHOSPHORUS 2.6 mg/dL (2.5-4.9); POTASSIUM 3.4 MEQ/L (3.7-5.4); SODIUM 138 MEQ/L (136-147); TOTAL BILIRUBIN 0.8 MG/DL (0.0-1.0); TOTAL PROTEIN 5.8 G/DL (6.4-8.3); UREA NITROGEN (BUN) 16 mg/dL (9-23)
[2018-04-22 08:33] LABS: BASOPHIL (%) 0.2 % (0-1); EOSINOPHIL (%) 1.2 % (0-5); EOSINOPHIL COUNT 0.1 K/uL (0-0.3); IMMATURE GRANULOCYTE (%) 0.6 % (0.0-0.7); MONOCYTE (%) 16.8 % (3-12); MONOCYTE COUNT 1.4 K/uL (0-0.8); NEUTROPHIL (%) 69.2 % (45-76); NEUTROPHIL COUNT 5.7 K/uL (1.8-6.4)
[2018-04-22 18:44] LABS: CHLORIDE 102 MEQ/L (99-109); CREATININE 1.3 MG/DL (0.6-1.3); GFR ESTIMATE (CALCULATED) 59 mL/min/ (58.99-99999); MAGNESIUM 1.8 mg/dl (1.3-2.7); PHOSPHORUS 2.6 mg/dL (2.5-4.9); SODIUM 137 MEQ/L (136-147); UREA NITROGEN (BUN) 13 mg/dL (9-23)
[2018-04-22 18:45] LABS: GLUCOSE 116 mg/dL (70-99); POTASSIUM 4.1 MEQ/L (3.7-5.4)
[2018-04-23] VITALS (20 sets, daily range): BP systolic 98–133; BP diastolic 56–92
[2018-04-23 05:34] LABS: BASOPHIL (%) 0.3 % (0-1); EOSINOPHIL (%) 1.1 % (0-5); EOSINOPHIL COUNT 0.1 K/uL (0-0.3); HEMATOCRIT 29.6 % (38.0-50.0); HEMOGLOBIN 9.1 G/DL (12.5-16.6); IMMATURE GRANULOCYTE (%) 0.6 % (0.0-0.7); LYMPHOCYTE (%) 12.5 % (15-42); LYMPHOCYTE COUNT 0.9 K/uL (1.0-2.8); MCH 25.7 PG (29.0-34.0); MCHC 30.7 G/DL (30.0-36.0); MCV 83.6 FL (86-99); MONOCYTE (%) 16.9 % (3-12); MONOCYTE COUNT 1.2 K/uL (0-0.8); NEUTROPHIL (%) 68.6 % (45-76); NEUTROPHIL COUNT 4.9 K/uL (1.8-6.4); PLATELET COUNT 219 K/uL (156-360); RBC DIS.WIDTH-CV 22.5 % (11.8-14.6); RBC DIS.WIDTH-SD 67.2 % (39-53); RED BLOOD COUNT 3.54 M/uL (4.00-5.50); WHITE BLOOD COUNT 7.1 K/uL (4.1-10.2)
[2018-04-23 06:08] LABS: ALBUMIN 2.7 G/DL (3.2-4.8); ALKALINE PHOSPHATASE 70 IU/L (3-129); ALT (GPT) 96 IU/L (3-49); AST (GOT) 34 IU/L (2-34); CHLORIDE 101 MEQ/L (99-109); CREATININE 1.1 MG/DL (0.6-1.3); GFR ESTIMATE (CALCULATED) > 59 mL/min/ (58.99-99999); MAGNESIUM 1.7 mg/dl (1.3-2.7); PHOSPHORUS 2.6 mg/dL (2.5-4.9); POTASSIUM 3.4 MEQ/L (3.7-5.4); SODIUM 138 MEQ/L (136-147); TOTAL BILIRUBIN 0.8 MG/DL (0.0-1.0); TOTAL PROTEIN 5.6 G/DL (6.4-8.3); UREA NITROGEN (BUN) 13 mg/dL (9-23)
[2018-04-23 06:11] LABS: GLUCOSE 86 mg/dL (70-99)
[2018-04-23 19:31] LABS: CHLORIDE 100 MEQ/L (99-109); GFR ESTIMATE (CALCULATED) > 59 mL/min/ (58.99-99999); PHOSPHORUS 2.6 mg/dL (2.5-4.9); POTASSIUM 3.9 MEQ/L (3.7-5.4); SODIUM 137 MEQ/L (136-147); UREA NITROGEN (BUN) 10 mg/dL (9-23)
[2018-04-23 19:33] LABS: GLUCOSE 109 mg/dL (70-99)
[2018-04-24] VITALS (7 sets, daily range): BP systolic 101–124; BP diastolic 55–79
[2018-04-24 05:34] LABS: HEMATOCRIT 30.9 % (38.0-50.0); HEMOGLOBIN 9.4 G/DL (12.5-16.6); MCH 25.2 PG (29.0-34.0); MCHC 30.4 G/DL (30.0-36.0); MCV 82.8 FL (86-99); PLATELET COUNT 269 K/uL (156-360); RBC DIS.WIDTH-CV 21.8 % (11.8-14.6); RBC DIS.WIDTH-SD 65.3 % (39-53); RED BLOOD COUNT 3.73 M/uL (4.00-5.50); WHITE BLOOD COUNT 6.4 K/uL (4.1-10.2)
[2018-04-24 06:15] LABS: ALBUMIN 2.6 G/DL (3.2-4.8); ALKALINE PHOSPHATASE 60 IU/L (3-129); ALT (GPT) 81 IU/L (3-49); AST (GOT) 30 IU/L (2-34); CHLORIDE 99 MEQ/L (99-109); GFR ESTIMATE (CALCULATED) > 59 mL/min/ (58.99-99999); GLUCOSE 87 mg/dL (70-99); PHOSPHORUS 2.7 mg/dL (2.5-4.9); POTASSIUM 3.4 MEQ/L (3.7-5.4); SODIUM 138 MEQ/L (136-147); TOTAL BILIRUBIN 0.7 MG/DL (0.0-1.0); TOTAL PROTEIN 6.1 G/DL (6.4-8.3); UREA NITROGEN (BUN) 11 mg/dL (9-23)
[2018-04-24 06:21] LABS: MAGNESIUM 1.6 mg/dl (1.3-2.7)
[2018-04-24 07:06] LABS: ABS NEUTROPHIL COUNT 4.9; ANISOCYTOSIS 1+; BASOPHILS 0.9 %; EOSINOPHIL ABS CT 0.1; EOSINOPHILS 0.9 % (0-5.0); HYPOCHROMASIA 1+; LYMPHOCYTES 13.1 % (15.0-45.0); MACROCYTES 1+; MONOCYTES 8.8 % (0-9.0); OVALOCYTES 1+; PLAT.SUFFICIENCY ADEQUATE; POIKILOCYTOSIS 1+; POLYCHROMASIA 1+; SEG.NEUTROPHILS 76.3 % (46.0-76.0); SPHEROCYTES 1+
[2018-04-24 19:16] LABS: CHLORIDE 99 MEQ/L (99-109); GFR ESTIMATE (CALCULATED) > 59 mL/min/ (58.99-99999); GLUCOSE 129 mg/dL (70-99); MAGNESIUM 1.6 mg/dl (1.3-2.7); POTASSIUM 3.6 MEQ/L (3.7-5.4); SODIUM 139 MEQ/L (136-147); UREA NITROGEN (BUN) 11 mg/dL (9-23)
[2018-04-25 03:50] VITALS: BP 118/77
[2018-04-25 05:45] LABS: HEMATOCRIT 29.8 % (38.0-50.0); HEMOGLOBIN 9.1 G/DL (12.5-16.6); MCH 25.3 PG (29.0-34.0); MCHC 30.5 G/DL (30.0-36.0); MCV 82.8 FL (86-99); PLATELET COUNT 296 K/uL (156-360); RBC DIS.WIDTH-CV 22.1 % (11.8-14.6); RBC DIS.WIDTH-SD 65.9 % (39-53); WHITE BLOOD COUNT 5.7 K/uL (4.1-10.2)
[2018-04-25 06:04] LABS: ALBUMIN 2.7 G/DL (3.2-4.8); ALKALINE PHOSPHATASE 62 IU/L (3-129); ALT (GPT) 63 IU/L (3-49); AST (GOT) 25 IU/L (2-34); CHLORIDE 96 MEQ/L (99-109); CREATININE 0.9 MG/DL (0.6-1.3); GFR ESTIMATE (CALCULATED) > 59 mL/min/ (58.99-99999); MAGNESIUM 1.4 mg/dl (1.3-2.7); PHOSPHORUS 2.9 mg/dL (2.5-4.9); POTASSIUM 3.3 MEQ/L (3.7-5.4); SODIUM 137 MEQ/L (136-147); TOTAL BILIRUBIN 0.6 MG/DL (0.0-1.0); TOTAL PROTEIN 6.1 G/DL (6.4-8.3); UREA NITROGEN (BUN) 11 mg/dL (9-23)
[2018-04-25 06:40] LABS: GLUCOSE 84 mg/dL (70-99)
[2018-04-25 06:44] LABS: BASOPHIL (%) 0.5 % (0-1); EOSINOPHIL (%) 2.1 % (0-5); EOSINOPHIL COUNT 0.1 K/uL (0-0.3); IMMATURE GRANULOCYTE (%) 0.7 % (0.0-0.7); LYMPHOCYTE COUNT 0.9 K/uL (1.0-2.8); MONOCYTE (%) 17.6 % (3-12); NEUTROPHIL (%) 63.1 % (45-76); NEUTROPHIL COUNT 3.6 K/uL (1.8-6.4)
[2018-04-25 08:57] VITALS: BP 130/83
[2018-04-25 15:58] VITALS: BP 97/62
[2018-04-25 19:05] VITALS: BP 124/81
[2018-04-26] VITALS (7 sets, daily range): BP systolic 105–137; BP diastolic 78–92
[2018-04-26 05:06] LABS: HEMATOCRIT 31.2 % (38.0-50.0); HEMOGLOBIN 9.4 G/DL (12.5-16.6); MCHC 30.1 G/DL (30.0-36.0); PLATELET COUNT 319 K/uL (156-360); RBC DIS.WIDTH-CV 21.8 % (11.8-14.6); RBC DIS.WIDTH-SD 64.4 % (39-53); RED BLOOD COUNT 3.76 M/uL (4.00-5.50); WHITE BLOOD COUNT 5.7 K/uL (4.1-10.2)
[2018-04-26 05:39] LABS: CHLORIDE 101 MEQ/L (99-109); CREATININE 0.8 MG/DL (0.6-1.3); GFR ESTIMATE (CALCULATED) > 59 mL/min/ (58.99-99999); GLUCOSE 89 mg/dL (70-99); POTASSIUM 3.6 MEQ/L (3.7-5.4); SODIUM 138 MEQ/L (136-147); UREA NITROGEN (BUN) 10 mg/dL (9-23)
[2018-04-26 06:30] LABS: BASOPHIL (%) 0.7 % (0-1); EOSINOPHIL (%) 1.6 % (0-5); EOSINOPHIL COUNT 0.1 K/uL (0-0.3); IMMATURE GRANULOCYTE (%) 0.5 % (0.0-0.7); LYMPHOCYTE (%) 22.1 % (15-42); LYMPHOCYTE COUNT 1.3 K/uL (1.0-2.8); MONOCYTE (%) 17.2 % (3-12); NEUTROPHIL (%) 57.9 % (45-76); NEUTROPHIL COUNT 3.3 K/uL (1.8-6.4)
[2018-04-27 03:44] VITALS: BP 111/70
[2018-04-27 08:57] VITALS: BP 121/87
[2018-04-27 13:00] VITALS: BP 104/73
[2018-04-27 15:02] VITALS: BP 112/76
[2018-04-27 20:45] VITALS: BP 96/62
[2018-04-28] VITALS (7 sets, daily range): BP systolic 98–140; BP diastolic 61–90
[2018-04-29 03:17] VITALS: BP 114/76
[2018-04-29 08:55] LABS: HEMATOCRIT 35.2 % (38.0-50.0); HEMOGLOBIN 10.7 G/DL (12.5-16.6); MCH 25.2 PG (29.0-34.0); MCHC 30.4 G/DL (30.0-36.0); MCV 82.8 FL (86-99); PLATELET COUNT 356 K/uL (156-360); RBC DIS.WIDTH-CV 21.9 % (11.8-14.6); RBC DIS.WIDTH-SD 63.7 % (39-53); RED BLOOD COUNT 4.25 M/uL (4.00-5.50); WHITE BLOOD COUNT 8.8 K/uL (4.1-10.2)
[2018-04-29 09:15] VITALS: BP 131/87
[2018-04-29 09:19] LABS: CHLORIDE 100 MEQ/L (99-109); GFR ESTIMATE (CALCULATED) > 59 mL/min/ (58.99-99999); GLUCOSE 101 mg/dL (70-99); SODIUM 141 MEQ/L (136-147)
[2018-04-29 09:23] LABS: POTASSIUM 4.4 MEQ/L (3.7-5.4); UREA NITROGEN (BUN) 23 mg/dL (9-23)
[2018-04-29 12:41] VITALS: BP 104/68
[2018-04-29 16:17] VITALS: BP 116/81
[2018-04-29 19:26] VITALS: BP 114/80
[2018-04-29 23:09] VITALS: BP 108/76
[2018-04-30 03:46] VITALS: BP 108/56
[2018-04-30 05:13] LABS: BASOPHIL (%) 0.6 % (0-1); BASOPHIL COUNT 0.1 K/uL (0-0.1); EOSINOPHIL (%) 0.9 % (0-5); EOSINOPHIL COUNT 0.1 K/uL (0-0.3); HEMATOCRIT 33.4 % (38.0-50.0); HEMOGLOBIN 10.2 G/DL (12.5-16.6); IMMATURE GRANULOCYTE (%) 0.8 % (0.0-0.7); LYMPHOCYTE (%) 17.2 % (15-42); LYMPHOCYTE COUNT 1.4 K/uL (1.0-2.8); MCH 25.3 PG (29.0-34.0); MCHC 30.5 G/DL (30.0-36.0); MCV 82.9 FL (86-99); MONOCYTE (%) 12.6 % (3-12); NEUTROPHIL (%) 67.9 % (45-76); NEUTROPHIL COUNT 5.4 K/uL (1.8-6.4); PLATELET COUNT 329 K/uL (156-360); RBC DIS.WIDTH-CV 21.6 % (11.8-14.6); RBC DIS.WIDTH-SD 62.8 % (39-53); RED BLOOD COUNT 4.03 M/uL (4.00-5.50)
[2018-04-30 06:47] LABS: CHLORIDE 102 MEQ/L (99-109); CREATININE 1.1 MG/DL (0.6-1.3); GFR ESTIMATE (CALCULATED) > 59 mL/min/ (58.99-99999); GLUCOSE 91 mg/dL (70-99); SODIUM 141 MEQ/L (136-147); UREA NITROGEN (BUN) 23 mg/dL (9-23)
[2018-04-30 06:51] LABS: POTASSIUM 3.5 MEQ/L (3.7-5.4)
[2018-04-30 07:18] VITALS: BP 98/69
[2018-04-30 08:32] VITALS: BP 100/63
[2018-04-30 11:34] VITALS: BP 98/76
[2018-04-30] MEDS ORDERED: DUONEB 2.5-0.5 M3 ML AEROSOL (12:37)
[2018-04-30] MEDS ORDERED: LEVOTHYROXINE100 MCG PO (12:37)
[2018-04-30] MEDS ORDERED: ELIQUIS5 MG PO (12:37)
[2018-04-30] MEDS ORDERED: LOPRESSOR25 MG PO (12:37)
[2018-04-30] MEDS ORDERED: K-DUR20 MEQ PO (12:37)
[2018-04-30] MEDS ORDERED: FUROSEMIDE40 MG PO (12:37)
[2018-04-30 16:30] VITALS: BP 98/62
== END 2018-04-30 17:21 | DRG 871 ==
LOC: EME → EDBD 00:23 → EME 00:23 → 4WEST 05:51 → ENRESERV 05:51 → EDOF 05:51 → 4EAST 05:51 → ENRESERV 06:21 → EDOF 06:51 → ENRESERV 06:53 → EDOF 08:00 → 4WEST 08:23 → ENRESERV 04-23 16:43 → 4WEST 04-23 17:00 → 4EAST 04-23 20:01 → ENPENDDIS 04-30 → 4EAST 04-30 17:21
PROVIDERS: Emergency Medicine; Hospitalist; Internal Medicine; Internal Medicine Critical Care Medicine; Internal Medicine Pulmonary Disease; Specialist; Student in an Organized Health Care Education/Training Program
DX: A41.9 Sepsis, unspecified organism (principal); R65.21 Severe sepsis with septic shock; A04.72 Enterocolitis due to Clostridium difficile, not specified as recurrent; N39.0 Urinary tract infection, site not specified; B96.1 Klebsiella pneumoniae [K. pneumoniae] as the cause of diseases classified elsewhere; R57.0 Cardiogenic shock; D65 Disseminated intravascular coagulation [defibrination syndrome]; T45.515A Adverse effect of anticoagulants, initial encounter; N17.9 Acute kidney failure, unspecified; E87.4 Mixed disorder of acid-base balance; R06.4 Hyperventilation; J44.0 Chronic obstructive pulmonary disease with (acute) lower respiratory infection; J18.9 Pneumonia, unspecified organism; Y95 Nosocomial condition; J96.01 Acute respiratory failure with hypoxia; I47.2 Ventricular tachycardia; I47.1 Supraventricular tachycardia; E87.6 Hypokalemia; Z66 Do not resuscitate; D61.810 Antineoplastic chemotherapy induced pancytopenia; T45.1X5A Adverse effect of antineoplastic and immunosuppressive drugs, initial encounter; C18.9 Malignant neoplasm of colon, unspecified; K21.9 Gastro-esophageal reflux disease without esophagitis; E03.9 Hypothyroidism, unspecified; I34.0 Nonrheumatic mitral (valve) insufficiency; I42.0 Dilated cardiomyopathy; C77.2 Secondary and unspecified malignant neoplasm of intra-abdominal lymph nodes; E46 Unspecified protein-calorie malnutrition; I50.9 Heart failure, unspecified; I11.0 Hypertensive heart disease with heart failure; F17.200 Nicotine dependence, unspecified, uncomplicated; Z79.01 Long term (current) use of anticoagulants; Z95.828 Presence of other vascular implants and grafts; Z86.711 Personal history of pulmonary embolism; Z86.718 Personal history of other venous thrombosis and embolism; Z90.49 Acquired absence of other specified parts of digestive tract
CPT/HCPCS: 31500; 36600; 71045; 71046; 71250; 71275; 74174; 74176; 80048; 80048 91; 80053; 81003; 82533 91; 82550; 82803; 83605; 83615; 83735; 83880; 84100; 84145 90; 84443; 84478; 84484; 84550; 85025; 85025 91; 85027; 85379; 85610; 85730; 86022 90; 86141; 86850; 86900; 86901; 87040; 87070; 87077; 87086 GA; 87186; 87205; 87493; 87641; 93005; 93306; 94002; 94003; 94640; 94660; 94760; 94799; 97530 GO; 97530 GP; 99281; 99285; C1751; C9113; G0480; J0692; J0696; J1250; J1940; J2405; J2543; J2704; J3010; J3370; J3411; J3475; J3480; J7030; J7050; J7070; P9017; P9035; Q0167; S0028; S0030